=== PATIENT | male | born 2000 | race African-American/Black ===

== ENCOUNTER 2021-03-17 13:53 | Emergency (ER) | payer OTHER, SELFPAY ==
--- NOTE | ~2021-03-17 | XR_ITS ---
EXAMINATION: XR CHEST CLINICAL INFORMATION: Shortness of breath COMPARISON: None TECHNIQUE: Frontal view of the chest was obtained. FINDINGS: No significant abnormality is noted involving the heart, lungs, mediastinum, bony thorax or soft tissues. XR/XR chest 1V IMPRESSION: Unremarkable examination.
[2021-03-17 13:57] VITALS: BP 149/80; PULSE 96; RESP 16; TEMP 36.1; O2SAT 91; BMI 36.0
[2021-03-17 14:14] VITALS: O2SAT 98
--- NOTE | 2021-03-17 14:26 | ED.SOB ---
HPI - SOB/Dyspnea General Chief Complaint: Dyspnea Stated Complaint: diff breathing Time Seen by Provider: 03/17/21 14:15 History of Present Illness HPI Narrative: Patient is 20 years old no history of asthma in the past. Already received coronavirus vaccine. Complaining of shortness of breath. Patient has a history using marijuana. No other recreational drug use. Complaining of mild coughing upper respiratory symptoms that is been ongoing for the last 24 hours. No vomiting no diaphoresis no weight loss. Patient from home. No hospitalization in the past. No cardiac issues in the past. Related Data Previous Rx's Medication Instructions Recorded azithromycin 250 mg tablet See Rx Instructions .ROUTE 03/17/21 .COMPLEX #6 tab prednisone 20 mg tablet 40 mg PO DAILY #10 tab 03/17/21 Allergies Allergy/AdvReac Type Severity Reaction Status Date / Time No Known Allergies Allergy Unverified 01/25/20 18:25 Review of Systems Review of Systems: Positive coughing positive generalized malaise positive wheezing Yes all other systems are reviewed and are negative [facility] Past Medical History Attestation statement: The following information was validated with the patient. Social History Social History Alcohol intake: never Smoked in Last 30 Days: No Use of substances other than those prescribed or required for medical reasons: No Advance Directives: No Advance Directives Information Provided: No Physical Exam Vital Signs: Vital Signs: Last Vital Signs Temp 97.0 F 03/17/21 13:57 Pulse 96 03/17/21 13:57 Resp 16 03/17/21 13:57 BP 149/80 H 03/17/21 13:57 Pulse Ox 98 03/17/21 14:14 Body Mass Index 36.0 Appearance: Alert. Oriented X3. No acute distress. Eyes: Pupils equal, round and reactive to light. ENT: Pharynx normal. Neck: Normal inspection. Neck supple. No lymph nodes noted. No crepitus CVS: Normal heart rate and rhythm. Pulses normal. Normal S1 and S2 Respiratory: No respiratory distress. Positive expiratory wheezing noted bilaterally. Abdomen: Soft and nontender. No rigidity. No distention. good BS x4 Skin: Skin warm and dry. Normal skin color. Normal skin turgor. Extremities: No lower extremity edema. Neurovascular intact to all extremities. No Lacerations. No Rash Neuro: Oriented X 3. No motor deficit. No sensory deficit. Moving all extermities. No slurred speech MDM - SOB/Dyspnea MDM Narrative Medical decision making narrative: Patient's chest x-ray showed no evidence of pneumonia pneumothorax. Given steroid and neb treatment with moderate relief. O2 sats 98% on room air. Will give additional steroid. Will go ahead and given albuterol inhaler to take home. Patient is in stable condition. Will discharge home. Medical Records Attestation: I reviewed the patient's medical records. Lab Data Attestation: I reviewed the patient's lab results. Labs: Lab Results 03/17/21 Range/Units 14:28 COVID-19 ([facility]) Negative (Negative) COVID-19 Clin Com See Note Discharge Plan Discharge Clinical Impression: Asthma with exacerbation, Acute upper respiratory infection Patient Disposition: Home, Self-Care Instructions: Asthma (ED), Upper Respiratory Infection (ED) Prescriptions: New azithromycin 250 mg tablet See Rx Instructions .ROUTE .COMPLEX Qty: 6 RF: 0 prednisone 20 mg tablet 40 mg PO DAILY Qty: 10 RF: 0 Referrals: Jimmy Vaughn MD [Primary Care Provider] - 2 days
[2021-03-17] MEDS: predniSONE 20 MG TABLET 60 MG PO (14:27)
[2021-03-17] MEDS: Albuterol/Iprat 2.5/0.5MG 3 ML AMPUL.NEB INHALE (14:44)
[2021-03-17 14:50] LABS: COVID-19 Test Negative (Negative); IDNOW Serial# 9DD0AD1C
[2021-03-17 15:44] VITALS: PULSE 98; O2SAT 95
[2021-03-17] MEDS: Albuterol Sulfate 90 MCG 8 GM INHALER 2 PUFF INHALE (15:48)
== END 2021-03-17 16:25 | disposition home or self-care (01) ==
PROVIDERS: Emergency Provider Emergency Medicine Emergency Medical Services; PCP Pediatrics
DX: J06.9 Acute upper respiratory infection, unspecified (principal); J45.901 Unspecified asthma with (acute) exacerbation; Z20.822 Contact with and (suspected) exposure to COVID-19; Z79.899 Other long term (current) drug therapy
CPT/HCPCS: 36415; 71045; 87635; 94640; 99284

== ENCOUNTER 2022-06-26 20:21 | Inpatient (IN) | payer OTHER, SELFPAY ==
--- NOTE | 2022-06-26 20:39 | ED_ITS ---
HPI - Psych General Chief Complaint: Psychiatric Symptoms <EVENS Santos - Last Filed: 06/26/22 20:45> Stated Complaint: Crisis <EVENS Santos - Last Filed: 06/26/22 20:45> Time Seen by Provider: 06/26/22 21:04 <EVENS Santos - Last Filed: 06/26/22 20:45> Source: patient and family <Alberta Marks MD - Last Filed: 06/27/22 02:24> Mode of arrival: ambulatory <Alberta Marks MD - Last Filed: 06/27/22 02:24> Limitations: other (Paranoid) <Alberta Marks MD - Last Filed: 06/27/22 02:24> History of Present Illness HPI Narrative: Patient comes to the emergency room accompanied by his father. The family reports that the patient has been paranoid, talking to himself. Seems that earlier today, patient disclosed to his therapist that patient is hearing voices telling him to kill his mother. Patient has not been diagnosed with schizophrenia. However, there is strong family history on both sides of schizophrenia. Patient denies suicidal homicidal ideation <Alberta Marks MD - Last Filed: 06/27/22 02:24> Related Data Home Medications: Home Medications Medication Instructions Recorded Confirmed No Known Home Meds 06/26/22 06/26/22 <EVENS Santos - Last Filed: 06/26/22 20:45> Allergies/Adverse Reactions: Allergies Allergy/AdvReac Type Severity Reaction Status Date / Time No Known Allergies Allergy Verified 06/26/22 20:43 <EVENS Santos - Last Filed: 06/26/22 20:45> Review of Systems Review of Systems: Yes Unobtainable due to mental condition <Alberta Marks MD - Last Filed: 06/27/22 02:24> [facility] Social History Social History: Social History Alcohol intake: never Advance Directives: No Advance Directives Information Provided: No Healthcare Proxy: No Guardian: No <EVENS Santos - Last Filed: 06/26/22 20:45> Physical Exam Vital Signs: Vital Signs: Last Vital Signs Temp 98.1 F 06/27/22 06:55 Pulse 78 06/27/22 06:55 Resp 16 06/27/22 06:55 BP 118/63 06/27/22 06:55 Pulse Ox 96 06/27/22 06:55 O2 Del Method 06/27/22 06:55 BMI result Body Mass Index 34.1 <EVENS Santos - Last Filed: 06/26/22 20:45> Vital Signs: Last Vital Signs Temp 98.1 F 06/27/22 06:55 Pulse 78 06/27/22 06:55 Resp 16 06/27/22 06:55 BP 118/63 06/27/22 06:55 Pulse Ox 96 06/27/22 06:55 O2 Del Method 06/27/22 06:55 BMI result Body Mass Index 34.1 <Alberta Marks MD - Last Filed: 06/27/22 02:24> Vital Signs: Last Vital Signs Temp 98.1 F 06/27/22 06:55 Pulse 78 06/27/22 06:55 Resp 16 06/27/22 06:55 BP 118/63 06/27/22 06:55 Pulse Ox 96 06/27/22 06:55 O2 Del Method 06/27/22 06:55 BMI result Body Mass Index 34.1 <Cuate Ortiz MD - Last Filed: 06/27/22 08:08> Const: Other: Appearance: Alert. Agitated, pacing around the rooms, trying to enter other patient's rooms, redirectable Eyes: Pupils equal, round and reactive to light. ENT: Pharynx normal. Neck: Normal inspection. Neck supple. No lymph nodes noted. No crepitus CVS: Normal heart rate and rhythm. Pulses normal. Normal S1 and S2 Respiratory: No respiratory distress. Breath sounds normal. No Wheezing. No rales Abdomen: Soft and nontender. No rigidity. No distention. Skin: Skin warm and dry. Normal skin color. Normal skin turgor. Extremities: No lower extremity edema. No Lacerations. No Rash Neuro: Oriented X 3. No motor deficit. No sensory deficit. Moving all extremities. No slurred speech. CN 2 through 12 grossly intact Psych: Restless, pacing around the rooms, delayed response to answering questions <Alberta Marks MD - Last Filed: 06/27/22 02:24> Course Course Course Narrative: RME- 20pm 21yoM presenting to the ED with Parents with complaints of being paranoid and and having hallucination started yesterday. Father brought him here for further evaluation treatment due to patient was acting erratic and the voices were telling him to harm other people. At this time patient denies this. Denies any SI or HI. Parents report this happened 6 months ago before see a counselor although this was after COVID and he was never seen by a psychiatrist or therapist. Patient denies any drug or alcohol usage. Family hx of schizoaffective disorder. Patient was never diagnosed with any mental health disorders. He is not on any medications. He does not have any prior medical history. Plan: Labs, UA, drugs of abuse screen, EKG, COVID/RSV/flu swab ordered at this time. Patient will be sent to the [facility] offer further evaluation and treatment. <EVENS Santos - Last Filed: 06/26/22 20:45> Reevaluation(s) Reevaluation #1: Jun 27, 8:07 AM Patient is here with auditory hallucination, remained hemodynamically stable no event overnight, pending crisis eval <Cuate Ortiz MD - Last Filed: 06/27/22 08:08> Time: 08:07 <Cuate Ortiz MD - Last Filed: 06/27/22 08:08> Medications Administered Discontinued Medications Generic Name Dose Route Start Last Admin Trade Name Freq PRN Reason Stop Dose Admin Diphenhydramine HCl 50 mg 06/26/22 23:47 06/26/22 23:53 Diphenhydramine Hcl 25 Mg Capsule PO 06/26/22 23:48 50 mg ONCE ONE Administration Haloperidol 5 mg 06/26/22 23:47 06/26/22 23:53 Haloperidol 5 Mg Tablet PO 06/26/22 23:48 5 mg ONCE ONE Administration Lorazepam 2 mg 06/26/22 23:47 06/26/22 23:53 Lorazepam 1 Mg Tablet PO 06/26/22 23:48 2 mg ONCE ONE Administration <EVENS Santos - Last Filed: 06/26/22 20:45> Medications Administered Discontinued Medications Generic Name Dose Route Start Last Admin Trade Name Freq PRN Reason Stop Dose Admin Diphenhydramine HCl 50 mg 06/26/22 23:47 06/26/22 23:53 Diphenhydramine Hcl 25 Mg Capsule PO 06/26/22 23:48 50 mg ONCE ONE Administration Haloperidol 5 mg 06/26/22 23:47 06/26/22 23:53 Haloperidol 5 Mg Tablet PO 06/26/22 23:48 5 mg ONCE ONE Administration Lorazepam 2 mg 06/26/22 23:47 06/26/22 23:53 Lorazepam 1 Mg Tablet PO 06/26/22 23:48 2 mg ONCE ONE Administration <Alberta Marks MD - Last Filed: 06/27/22 02:24> Medications Administered Discontinued Medications Generic Name Dose Route Start Last Admin Trade Name Nikko PRN Reason Stop Dose Admin Diphenhydramine HCl 50 mg 06/26/22 23:47 06/26/22 23:53 Diphenhydramine Hcl 25 Mg Capsule PO 06/26/22 23:48 50 mg ONCE ONE Administration Haloperidol 5 mg 06/26/22 23:47 06/26/22 23:53 Haloperidol 5 Mg Tablet PO 06/26/22 23:48 5 mg ONCE ONE Administration Lorazepam 2 mg 06/26/22 23:47 06/26/22 23:53 Lorazepam 1 Mg Tablet PO 06/26/22 23:48 2 mg ONCE ONE Administration <Cuate Ortiz MD - Last Filed: 06/27/22 08:08> Medical Decision Making Medical Decision Making MDM Narrative: -patient was given p.o. Haldol, lorazepam and diphenhydramine. -patient had good response to the above mentioned medications. Patient has not been prescribed any medications previously for mental conditions. -I was informed by the patient's nurse that patient had been extremely restless and labs were not obtained. However, patient is now calm, sleeping, they will attempt drawing blood and obtaining a urine sample shortly. -patient is on a Section 12, patient is to be re-evaluated in the morning -all the labs pending. -sign-out given to Dr. Parikh <Alberta Marks MD - Last Filed: 06/27/22 02:24> Differential Diagnosis Differential Diagnoses: The differential diagnosis associated with the presentation includes (Substance abuse, anxiety, depression, schizophrenia, paranoia) <Alberta Marks MD - Last Filed: 06/27/22 02:24> Admission/Observation Consideration of admission/observation: Escalation of care including admission/observation considered <Alberta Marks MD - Last Filed: 06/27/22 02:24> Lab Data Labs: Lab Results 06/26/22 06/27/22 Range/Units 21:20 06:33 Urine Color Yellow Urine Appearance Clear Urine pH 5.5 (5.0-9.0) Ur Specific [place] 1.025 (1.005-1.025) Urine Protein Trace (Neg-Trace) mg/dL Urine Glucose (UA) Negative (Negative) mg/dL Urine Ketones Negative (Negative) mg/dL Urine Blood Negative (Negative) Urine Nitrite Negative (Negative) Ur Leukocyte Esterase Negative (Negative) Influenza Type A (PCR) NEGATIVE (Negative) Influenza Type B (PCR) NEGATIVE (Negative) RSV RNA Qual (PCR) NEGATIVE (Negative) SARS-CoV-2 RNA (RT-PCR) NEGATIVE (Negative) <EVENS Santos - Last Filed: 06/26/22 20:45> Lab Results 06/26/22 06/27/22 Range/Units 21:20 06:33 Urine Color Yellow Urine Appearance Clear Urine pH 5.5 (5.0-9.0) Ur Specific [place] 1.025 (1.005-1.025) Urine Protein Trace (Neg-Trace) mg/dL Urine Glucose (UA) Negative (Negative) mg/dL Urine Ketones Negative (Negative) mg/dL Urine Blood Negative (Negative) Urine Nitrite Negative (Negative) Ur Leukocyte Esterase Negative (Negative) Influenza Type A (PCR) NEGATIVE (Negative) Influenza Type B (PCR) NEGATIVE (Negative) RSV RNA Qual (PCR) NEGATIVE (Negative) SARS-CoV-2 RNA (RT-PCR) NEGATIVE (Negative) <Alberta Marks MD - Last Filed: 06/27/22 02:24> Lab Results 06/26/22 06/27/22 Range/Units 21:20 06:33 Urine Color Yellow Urine Appearance Clear Urine pH 5.5 (5.0-9.0) Ur Specific [place] 1.025 (1.005-1.025) Urine Protein Trace (Neg-Trace) mg/dL Urine Glucose (UA) Negative (Negative) mg/dL Urine Ketones Negative (Negative) mg/dL Urine Blood Negative (Negative) Urine Nitrite Negative (Negative) Ur Leukocyte Esterase Negative (Negative) Influenza Type A (PCR) NEGATIVE (Negative) Influenza Type B (PCR) NEGATIVE (Negative) RSV RNA Qual (PCR) NEGATIVE (Negative) SARS-CoV-2 RNA (RT-PCR) NEGATIVE (Negative) <Cuate Ortiz MD - Last Filed: 06/27/22 08:08> Discharge Plan Discharge Clinical Impression: Paranoid, Auditory hallucinations <EVENS Santos - Last Filed: 06/26/22 20:45> Patient Disposition: Still a Patient <EVENS Santos - Last Filed: 06/26/22 20:45> Prescriptions: No Action No Known Home Meds <EVENS Santos - Last Filed: 06/26/22 20:45> Interventions: [place]-Suicide Risk Severity Scale Last Done: 06/27/22 05:12 <EVENS Santos - Last Filed: 06/26/22 20:45>
--- NOTE | 2022-06-26 20:40 | ECG_ITS ---
Test Reason : QT CHECK Blood Pressure : / mmHG Vent. Rate : 088 BPM Atrial Rate : 088 BPM P-R Int : 134 ms QRS Dur : 082 ms QT Int : 370 ms P-R-T Axes : 055 017 000 degrees QTc Int : 447 ms Normal sinus rhythm with sinus arrhythmia Normal ECG No previous ECGs available Referred By: Marisol Stanton Electronically Signed By:Harsha Ross
[2022-06-26 20:45] VITALS: BP 153/86; PULSE 10; RESP 16; TEMP 36.7; O2SAT 97; BMI 34.1
[2022-06-26 22:04] LABS: Influenza A PCR NEGATIVE (Negative); Influenza B PCR NEGATIVE (Negative); Resp Syncy Virus RNA Qual PCR NEGATIVE (Negative); SARS COV2 PCR INHOUSE NEGATIVE (Negative)
[2022-06-26] MEDS: diphenhydrAMINE HCL 25 MG CAPSULE 50 MG PO (23:53)
[2022-06-26] MEDS: HaloperidoL 5 MG TABLET PO (23:53)
[2022-06-26] MEDS: LORazepam 1 MG TABLET 2 MG PO (23:53)
[2022-06-27] VITALS (7 sets, daily range): BP systolic 118–157; BP diastolic 63–93; PULSE 78–125; RESP 16–20; TEMP 36.1–37.1; O2SAT 95–98
--- NOTE | 2022-06-27 05:57 | PC.NURSE ---
Patient at the time of arrival was emotionally dysregulated, self dialoguing, tearful, intrusive at time, jumping over the bed, provider notified/ordered Ativan 2 mg PO, Haldol 5 mg PO, and Benadryl 50 mg po administered as ordered at 2353 with + effect, patient engaged well with care team, disposition pending due to unavailability of labs result, med rec completed/patient is not on any home medication, behavior non concerning but may escalates, VSS, will continue to monitor.
--- NOTE | 2022-06-27 06:02 | PC.NURSE ---
Labs and EKG pending, patient is refusing.
[2022-06-27 06:41] LABS: Appearance Urine Clear; Color Urine Yellow; Glucose Urine UA Negative (Negative); Leukocyte Esterase Urine Negative (Negative); Nitrite Urine Negative (Negative); PH 5.5 (5.0-9.0); Specific Gravity - Urine 1.025 (1.005-1.025); Urine Blood Negative (Negative); Urine Ketones Negative (Negative); Urine Protein Trace mg/dL (Neg-Trace)
[2022-06-27 06:50] LABS: Amphetamine Screen Urine Not Detected (Not Detect); Barbiturates, Urine Not Detected (Not Detect); Benzodiazepines Screen Urine Not Detected (Not Detect); Cannabinoid Screen Urine Not Detected (Not Detect); Cocaine Screen Urine Not Detected (Not Detect); Fentanyl, urine Not Detected (Not Detect); Opiate Screen Urine Not Detected (Not Detect); Phencyclidine Screen Urine Not Detected (Not Detect)
--- NOTE | 2022-06-27 09:48 | MHC.CARE ---
patient is an inpatient bed search at this time.
--- NOTE | 2022-06-27 18:57 | PC.NURSE ---
Jeffrey was admitted to at 1735 from [facility] Pod on CV for treatment of psychosis. Precipitant of admission includes recent command auditory hallucinations to harm self and others, recent paranoia and difficulty sleeping. Jeffrey is alert, fully oriented, pleasant and largely cooperative with admission process. He does appear suspicious and guarded. He denies some of the information in the crisis assessment. For instance he confirmed CAH to harm self and denied CAH to harm others, In addition he denied ever using cocaine. Thought process appears logical. Affect is anxious. At times he appears internally preoccupied with some thought blocking. Jeffrey adamantly denies ideation, plan or intent to harm self or others. I hear the voices but I would never do what they tell me to do. Appetite is good with no recent wt loss or gain. Sleep is poor. I lay down to sleep and the voices keep me awake or if I do sleep they wake me up. Focus is fair. Substance Issues include marijuana and cocaine. He reports drinking 1-2 drinks every two weeks or so. No medical Issues?noted or reportedHe denies physical complaint. Jeffrey was placed on 15 minute Safety Checks.
--- NOTE | 2022-06-27 20:59 | PM.EVENT ---
Event Note Date of Service: 06/27/22 Event Note: patient eloped from [facility] and was brought back by security.He was agitated but settled after being put in a restraint chair. Haldol 5 mg, Benadryl 50 mg and Ativan 2 mg PO were ordered as PRNs. He was placed on 1:1 for tonight Time Spent With Patient Time: Total time managing care of this patient today __15__ minutes.
--- NOTE | 2022-06-27 21:05 | P.EN_ITS ---
Event Note Date of Service: 06/27/22 Event Note: Got a call from nursing railroad track repair supervisor that patient tried to elope from M3. He grabbed batch from 1 of the DIRECTOR CLINICAL [employer] and tried to exit the rear door. He was brought back by security. He was chemically restrained prior to my arrival. At the time of my evaluation, patient is calm and sitting in restraint chair. Denies any symptoms. He was placed on 1:1 for tonight Time Spent With Patient Time: Total time managing care of this patient today ____ minutes.
--- NOTE | 2022-06-28 04:26 | PC.NURSE ---
Addendum entered by Farhana Castle RN 06/28/22 05:47: No staff were injured on unit. Original Note: At approximately 20:17, pt was in milieu and had approached staff members. While speaking with them, pt grabbed one staff member's company baddaisy and ran to door at [address] stair[address] on unit. Using badge, he exited unit and ran into stairwell while being pursued by a staff member. Security was called at 20:19. Description of pt was given. Security escorted pt back to unit by 20:30. Pt was placed in restraint chair at 2034. Provider student liaison officer, Dr. Baer was notified of events, ordered PO meds and placed pt on 1:1. Vital signs were taken q15 mins and were stable. Pt was offered oral medications and he declined all of them. Pt was asked if he wanted his family notified of the event and subsequent restraint use and he stated that he did not want them notified. Pt had remained calm, cooperative and maintained behavioral control, therefore he was released from restraint chair at 21:20 with security present. Hospitalist, Dr. Whittington had been notified of the need for post-restraint consult and was on the unit to see pt at 21:03. No complaints of pain or injury. Pt's mother later called to check on her son. Pt was asked for permission to explain to mother what happened. Pt now agreed at this time. Info provided to Mom. Pt was up in milieu watching tv, playing card games and reading in his room. Pt has been cooperative since release from restraint chair. RN Data Processing Manager was notified of events. Pt continues on 1:1 to maintain safety.
--- NOTE | 2022-06-28 10:29 | P.HPPS_ITS ---
[facility] Date of Service: 06/28/22 Chief Complaint: depression, hi Sources of Information: patient interviewed, chart reviewed and crisis/core team assessment reviewed Additional Sources of Information: Father present during admission- Mr. Allen [facility] Subjective Notes: Dimas Warning (given and shows understanding) and Conditional Voluntary Narrative: Mr. Jessica is a 21 year-old male no prior psych admission or treatment but it appears symptoms have started over a year ago. Per father, pt had brief episode of paranoia and psychosis about one year ago but pt was not brought to the hospital nor the family seek outpatient psychiatric treatment. Per father, pt has been increasingly more socially withdrawn, not showing much motivation to seek a job or engage in activities outside of his house. In the past 2 week, pt has been reporting hearing voices telling her that his father has killed people or sold drugs. Pt has not been sleeping for 2 weeks. Pt has been more anxious and suspicious. He has been seen talking to someone who is not there. Pt has told family that voices are telling him that he should harm himself or his family. Pt has reported to father that he worries about their safety as voices telling her that someone may harm his family. Pt finally called the police and told them that there was a stranger in his house and at that time he agreed to come to the hospital for further evaluation. In the ED, utox is negative. CBC shows normocytic anema. CMP with very slightly elevated AST/ALT. TSH wnl. In the ED, pt was agitated requiring haldol and ativan IM with good effect. When pt was brought to the unit, he grabbed an ID from staff and eloped. He was brought by police back to the unit. No further agitation after that. Today, pt reports he was worried about his safety and his family safety and therefore elope. He reports hearing less voices, denies voices telling him to harm himself or others. He denies SI/HI. He reports fair sleep. Past Psychiatric History: Inpt: none before OP: none Past med trials: none Suicide attempt: none Per father no hx of aggression towards self or others prior to this admission. Medical Evaluation Reviewed: Yes PMFSH Family History: paternal uncle with schizophrenia. Social History: Pt lives with father. He completed HS. 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 Substance History: None Trauma History: None Diagnostics Vital Signs (24Hr): Vital Signs - 24 hr 06/27/22 15:03 06/27/22 18:42 Temperature 98.2 F 98.8 F Pulse Rate 89 99 Respiratory Rate 16 18 Blood Pressure 125/77 157/93 H Pulse Oximetry 98 97 Oxygen Delivery Method Room Air Room Air BMI result Body Mass Index 34.1 Labs 06/29/22 08:24 06/29/22 08:24 Labs: Laboratory Results - last 48 hr 06/26/22 06/27/22 06/27/22 21:20 06:33 06:33 Urine Color Yellow Urine Appearance Clear Urine pH 5.5 Ur Specific [place] 1.025 Urine Protein Trace Urine Glucose (UA) Negative Urine Ketones Negative Urine Blood Negative Urine Nitrite Negative Ur Leukocyte Esterase Negative Urine Opiates Screen Not Detected Urine Fentanyl Screen Not Detected Ur Barbiturates Screen Not Detected Ur Phencyclidine Scrn Not Detected Ur Amphetamines Screen Not Detected U Benzodiazepines Scrn Not Detected Urine Cocaine Screen Not Detected U Marijuana (THC) Screen Not Detected Influenza Type A (PCR) NEGATIVE Influenza Type B (PCR) NEGATIVE RSV RNA Qual (PCR) NEGATIVE SARS-CoV-2 RNA (RT-PCR) NEGATIVE Meds/Allergies Meds Home Medications Medication Instructions Recorded Confirmed Type No Known Home Meds 06/26/22 06/26/22 History Allergies Allergies Allergy/AdvReac Type Severity Reaction Status Date / Time No Known Allergies Allergy Verified 06/26/22 20:43 Mental Status Exam Mental Status Exam Narrative: Appearance: casually groomed, fair hygiene, in NAD Behavior: superfically cooperative but calm Psychomotor: no agitation or retardation noted Speech: clear, some delayed in response, soft tone, spontaneous TP: linear TC: paranoia that someone may harm him or ihs family Mood: anxious Affect: congruent SI: denies HI: denies VH/AH: reports hearing voices telling him that family is in danger Delusions: paranoid delusions Insight/judgment: improving x 2. Memory/cog: alert, oriented to place, month, year, situation. Assessment & Plan Assessment & Plan (1) Schizophrenia: Status: Acute Code(s): F20.9 - Schizophrenia, unspecified Plan Mr. Jessica is a 21 year-old male with prior episode of psychosis and paranoia a year ago, gradually decline in ability to function for past 1-2 years, less interest in social relationships, withdrawn. He has strong family hx of schizophrenia with paternal uncle and a maternal relative. Pt brought to [facility] after he called police reporting someone had broke into his house and presented as paranoid. We discussed risks, benefits and alternative treatment options. Pt slightly calmer today and agrees to try risperidone. PLAN 1. Admit to M3, CV, 15 minutes checks for safety 2. start risperidone 1mg po BID 3. obtain collateral information 4. Aftercare plan. Patient educated on: diagnosis Reason for continued inpatient stay Substantial Risk for: inability to function Statement Statement: I have reviewed the history and physical and performed a pertinent examination on my patient. No changes have occurred unless specified. If the History and Physical was not performed prior to admission, the Hospitalist's service will be consulted for completing the admission physical. Time Spent With Patient Time: Total time managing care of this patient today ____ minutes.
[2022-06-28] MEDS: risperiDONE 1 MG TABLET PO (12:45)
[2022-06-29] MEDS: risperiDONE 1 MG TABLET PO ×3 (00:29→22:02)
[2022-06-29 08:28] LABS: MANUAL DIFF FLAG NO
[2022-06-29 08:30] LABS: Basophils Absolute Auto 0.1 X10*3/uL (0.0-0.2); Basophils Percent Auto 1.3 % (0-2); Eosinophils Absolute Auto 0.1 X10*3/uL (0.0-0.4); Eosinophils Percent Auto 2.6 % (0-4); Hematocrit 41.6 % (42.0-52.0); Hemoglobin 13.9 g/dl (14.0-18.0); Imm Gran Abs Auto 0.01 X10*3/uL (0.00-0.03); Imm Gran Pct Auto 0.2 % (0.0-0.4); Lymphocytes Percent Auto 35.8 % (20-40); Mean Corpuscular HGB Conc 33.4 g/dl (31.0-36.0); Mean Corpuscular Volume 86.7 fL (80.0-98.0); Mean Platelet Volume 9.5 fL (9.4-12.4); Monocytes Absolute Auto 0.4 X10*3/uL (0.1-1.2); Monocytes Percent Auto 7.3 % (2-11); Neutrophils Absolute Auto 2.9 x10*3/uL (2.0-8.3); Neutrophils Percent Auto 52.8 % (45-73); Platelet Count 276 X10*3/uL (160-400); Red Cell Distribution Width 12.3 % (11.0-16.0); White Blood Count 5.5 X10*3/uL (4.8-10.8)
[2022-06-29 09:10] LABS: Alanine Aminotransferase 49 U/L (0-40); Albumin Level 4.1 g/dL (3.5-5.0); Alkaline Phosphatase 56 U/L (39-117); Anion Gap 12 (12-20); Aspartate Amino Transferase 40 U/L (5-37); Bilirubin Total 0.8 mg/dL (0.0-1.0); Blood Urea Nitrogen 11 mg/dL (9-16); Calcium 9.2 mg/dL (8.4-10.2); Carbon Dioxide 25 mmol/L (22-29); Chloride 105 mmol/L (96-108); Cholesterol 120 mg/dL; Creatinine Clr Calc Pharmacy 139.5; Estimated Glomerular Filt Rate > 60; Glucose Fasting 103 mg/dL (60-99); HDL Cholesterol 29 mg/dL; LDL Cholesterol Calculated 82 mg/dl; Potassium 4.3 mmol/L (3.3-5.1); Sodium 138 mmol/L (135-145); Triglycerides 48 mg/dL
[2022-06-29 09:26] LABS: Thyroid Stimulating Hormone 3.51 uIU/mL (0.32-4.0)
[2022-06-29 09:32] VITALS: BP 135/78; PULSE 87; RESP 16; TEMP 36.8; O2SAT 97
[2022-06-29 21:50] VITALS: BP 176/85; PULSE 105; TEMP 36.2; O2SAT 98
[2022-06-30 09:30] VITALS: BP 167/81; PULSE 99; RESP 20; TEMP 36.8; O2SAT 100
[2022-06-30] MEDS: risperiDONE 1 MG TABLET PO (09:53)
--- NOTE | 2022-06-30 13:28 | HO.PSYCHPN ---
Subjective Subjective Date of Service: 06/30/22 Reason For Visit: depression, hi Subjective Notes: Conditional Voluntary Interim History: Pt reports fair sleep. He reports less voices. He reports less worry about his safety and other's safety. He reports medications help him think more clearly. He denies SI/HI. He denies any physical concerns. He reports mild sedation in morning after taking risperidone but states that he feels less anxious after, therefore, declines to switch all dosing to bedtime. Review of Systems Review of Systems Yes Unobtainable due to mental condition Mental Status Exam Mental Status Exam Narrative: Appearance: casually groomed, fair hygiene, in NAD Behavior: superfically cooperative but calm Psychomotor: no agitation or retardation noted Speech: clear, some delayed in response, soft tone, spontaneous TP: linear TC: paranoia that someone may harm him or ihs family Mood: anxious Affect: congruent SI: denies HI: denies VH/AH: reports hearing voices telling him that family is in danger Delusions: paranoid delusions Insight/judgment: improving x 2. Memory/cog: alert, oriented to place, month, year, situation. Diagnostics Vital Signs (24Hr): Vital Signs - 24 hr 06/29/22 21:50 06/30/22 09:30 Temperature 97.2 F 98.3 F Pulse Rate 105 H 99 Respiratory Rate 20 Blood Pressure 176/85 H 167/81 H Pulse Oximetry 98 100 Oxygen Delivery Method Room Air Room Air BMI result Body Mass Index 34.1 Labs 06/29/22 08:24 06/29/22 08:24 Labs: Laboratory Results - last 48 hr 06/29/22 06/29/22 08:24 08:24 WBC 5.5 RBC 4.80 Hgb 13.9 L Hct 41.6 L MCV 86.7 MCH 29.0 MCHC 33.4 RDW 12.3 Plt Count 276 MPV 9.5 Immature Gran % (Auto) 0.2 Neut % (Auto) 52.8 Lymph % (Auto) 35.8 [place] % (Auto) 7.3 Eos % (Auto) 2.6 Baso % (Auto) 1.3 Lymph # (Auto) 2.0 [place] # (Auto) 0.4 Eos # (Auto) 0.1 Baso # (Auto) 0.1 Abs Immat Gran (auto) 0.01 Absolute Neuts (auto) 2.9 Absolute Nucleated RBC 0.000 Nucleated RBC % (auto) 0.0 Sodium 138 Potassium 4.3 Chloride 105 Carbon Dioxide 25 Anion Gap 12 BUN 11 Creatinine 0.93 Estim Creat Clear Calc 139.5 Estimated GFR > 60 Fasting Glucose 103 H Calcium 9.2 Total Bilirubin 0.8 AST 40 H ALT 49 H Alkaline Phosphatase 56 Total Protein 7.0 Albumin 4.1 Triglycerides 48 Cholesterol 120 LDL Cholesterol, Calc 82 HDL Cholesterol 29 TSH 3.51 Medications Medications Current Medications Acetaminophen (Acetaminophen 325 Mg Tablet) 650 mg PO Q6H PRN PRN Reason: Headache/Pain Mild Scale (1-3) Al Hydroxide/Mg Hydroxide (Magnesium Hydrox/Alum Hydrox 30 Ml Oral.Susp) 30 ml PO Q6H PRN PRN Reason: Heartburn/Nausea Diphenhydramine HCl (Diphenhydramine Hcl 25 Mg Capsule) 50 mg PO ONCE PRN PRN Reason: anxiety/restlessness Haloperidol (Haloperidol 5 Mg Tablet) 5 mg PO ONCE PRN PRN Reason: Anxiety Hydroxyzine HCl (Hydroxyzine Hcl 25 Mg Tablet) 25 mg PO Q6H PRN PRN Reason: Anxiety Lorazepam (Lorazepam 1 Mg Tablet) 2 mg PO ONCE PRN PRN Reason: anxiety/restlessness Lorazepam (Lorazepam 1 Mg Tablet) 2 mg PO Q4H PRN PRN Reason: anxiety/agitation/sleep Magnesium Hydroxide (Milk Of Magnesia 30 Ml Oral.Susp) 30 ml PO DAILY PRN PRN Reason: Constipation Olanzapine (Olanzapine Odt 10 Mg Tab.Rapdis) 10 mg TRANSLINGU Q6H PRN PRN Reason: agitation Risperidone (Risperidone 2 Mg Tablet) 2 mg PO BID SHALOM Trazodone HCl (Trazodone Hcl 50 Mg Tablet) 50 mg PO BEDTIME MRX1 PRN PRN Reason: Insomnia Allergies Allergies Allergy/AdvReac Type Severity Reaction Status Date / Time No Known Allergies Allergy Verified 06/26/22 20:43 Assessment & Plan Assessment & Plan (1) Schizophrenia: Status: Acute Code(s): F20.9 - Schizophrenia, unspecified Plan Mr. Jessica is a 21 year-old male with prior episode of psychosis and paranoia a year ago, gradually decline in ability to function for past 1-2 years, less interest in social relationships, withdrawn. He has strong family hx of schizophrenia with paternal uncle and a maternal relative. Pt brought to [facility] ED after he called police reporting someone had broke into his house and presented as paranoid. We discussed risks, benefits and alternative treatment options. Pt slightly calmer today and agrees to try risperidone. PLAN 1. Admit to M3, CV, 15 minutes checks for safety 2. start risperidone 1mg po BID 3. obtain collateral information 4. Aftercare plan. 06/30 increase risperidone 2mg po BID. Reason for contiued inpatient stay Substantial Risk for: inability to function Time Spent With Patient Time: Total time managing care of this patient today ____ minutes.
[2022-06-30 18:00] VITALS: BP 157/78; PULSE 112; RESP 20; TEMP 36.6; O2SAT 97
[2022-06-30] MEDS: risperiDONE 2 MG TABLET PO (20:23)
[2022-07-01 08:00] VITALS: BP 157/81; PULSE 93; RESP 18; TEMP 36.7; O2SAT 99
[2022-07-01] MEDS: risperiDONE 1 MG TABLET PO ×2 (10:05→20:49)
--- NOTE | 2022-07-01 11:32 | HO.PSYCHPN ---
Subjective Subjective Date of Service: 07/01/22 Reason For Visit: depression, hi Subjective Notes: Conditional Voluntary Interim History: Per nursing, pt had difficulty falling and staying asleep, which pt denies. Pt asks to be back on risperidone 1mg po BID. He presents as calm, less AH, less paranoid and no signs of aggression towards self or others. Father and mother report they both think pt much improved and would like pt to be discharged soon. Review of Systems Review of Systems Yes Unobtainable due to mental condition Mental Status Exam Mental Status Exam Narrative: Appearance: casually groomed, fair hygiene, in NAD Behavior: superfically cooperative but calm Psychomotor: no agitation or retardation noted Speech: clear, some delayed in response, soft tone, spontaneous TP: linear TC: paranoia that someone may harm him or ihs family Mood: anxious Affect: congruent SI: denies HI: denies VH/AH: reports hearing voices telling him that family is in danger Delusions: paranoid delusions Insight/judgment: improving x 2. Memory/cog: alert, oriented to place, month, year, situation. Diagnostics Vital Signs (24Hr): Vital Signs - 24 hr 07/01/22 20:47 07/01/22 21:28 07/02/22 08:30 Temperature 97.9 F 97.1 F Pulse Rate 101 H 92 Respiratory Rate 18 Blood Pressure 145/80 H 148/85 H Pulse Oximetry 99 100 Oxygen Delivery Method Room Air Room Air BMI result Body Mass Index 37.3 Labs 06/29/22 08:24 06/29/22 08:24 Medications Medications Current Medications Acetaminophen (Acetaminophen 325 Mg Tablet) 650 mg PO Q6H PRN PRN Reason: Headache/Pain Mild Scale (1-3) Al Hydroxide/Mg Hydroxide (Magnesium Hydrox/Alum Hydrox 30 Ml Oral.Susp) 30 ml PO Q6H PRN PRN Reason: Heartburn/Nausea Diphenhydramine HCl (Diphenhydramine Hcl 25 Mg Capsule) 50 mg PO ONCE PRN PRN Reason: anxiety/restlessness Haloperidol (Haloperidol 5 Mg Tablet) 5 mg PO ONCE PRN PRN Reason: Anxiety Hydroxyzine HCl (Hydroxyzine Hcl 25 Mg Tablet) 25 mg PO Q6H PRN PRN Reason: Anxiety Lorazepam (Lorazepam 1 Mg Tablet) 2 mg PO ONCE PRN PRN Reason: anxiety/restlessness Lorazepam (Lorazepam 1 Mg Tablet) 2 mg PO Q4H PRN PRN Reason: anxiety/agitation/sleep Magnesium Hydroxide (Milk Of Magnesia 30 Ml Oral.Susp) 30 ml PO DAILY PRN PRN Reason: Constipation Olanzapine (Olanzapine Odt 10 Mg Tab.Rapdis) 10 mg TRANSLINGU Q6H PRN PRN Reason: agitation Risperidone (Risperidone 1 Mg Tablet) 1 mg PO BID SHALOM Last Admin: 07/01/22 20:49 Dose: 1 mg Trazodone HCl (Trazodone Hcl 50 Mg Tablet) 50 mg PO BEDTIME MRX1 PRN PRN Reason: Insomnia Allergies Allergies Allergy/AdvReac Type Severity Reaction Status Date / Time No Known Allergies Allergy Verified 06/26/22 20:43 Assessment & Plan Assessment & Plan (1) Schizophrenia: Status: Acute Code(s): F20.9 - Schizophrenia, unspecified Plan Mr. Jessica is a 21 year-old male with prior episode of psychosis and paranoia a year ago, gradually decline in ability to function for past 1-2 years, less interest in social relationships, withdrawn. He has strong family hx of schizophrenia with paternal uncle and a maternal relative. Pt brought to [facility] ED after he called police reporting someone had broke into his house and presented as paranoid. We discussed risks, benefits and alternative treatment options. Pt slightly calmer today and agrees to try risperidone. PLAN 1. Admit to M3, CV, 15 minutes checks for safety 2. start risperidone 1mg po BID 3. obtain collateral information 4. Aftercare plan. 06/30 increase risperidone 2mg po BID. 07/01 decrease risperidone to 1mg po BID per pt request. Reason for contiued inpatient stay Substantial Risk for: stable for discharge Time Spent With Patient Time: Total time managing care of this patient today ____ minutes.
[2022-07-01 20:47] VITALS: BP 145/80; PULSE 101; O2SAT 99
[2022-07-01 21:28] VITALS: TEMP 36.6
[2022-07-02 08:30] VITALS: BP 148/85; PULSE 92; RESP 18; TEMP 36.2; O2SAT 100
[2022-07-02 08:45] VITALS: BMI 37.3
--- NOTE | 2022-07-02 08:53 | P.DS_ITS ---
DS: Providers Provider Date of Service: 07/02/22 Date of admission: 06/27/22 17:08 Primary care physician: Jimmy Vaughn MD DS: Diagnosis Discharge Diagnosis (1) Schizophrenia: Status: Acute DS: Medications Discharge Medications Home Medications: Previous Rx's Medication Instructions Recorded risperidone 1 mg tablet 1 mg PO BID #60 tabs 07/02/22 Mental Status Exam Mental Status Exam Narrative: Appearance: casually groomed, fair hygiene, in NAD Behavior: cooperative Psychomotor: no agitation or retardation noted Speech: clear, less delayed in response, soft tone, spontaneous TP: linear TC: no overt psychosis looking forward to see family. Mood: anxious Affect: congruent SI: denies HI: denies VH/AH: reports hearing voices telling him that family is in danger Delusions:no overt paranoid delusions Insight/judgment: improving x 2. Memory/cog: alert, oriented to place, month, year, situation. Data Data Completed and Pending Completed studies during hospitalization [Text1]: 06/26/22 06/27/22 06/27/22 21:20 06:33 06:33 WBC RBC Hgb Hct MCV MCH MCHC RDW Plt Count MPV Immature Gran % (Auto) Neut % (Auto) Lymph % (Auto) [place] % (Auto) Eos % (Auto) Baso % (Auto) Lymph # (Auto) [place] # (Auto) Eos # (Auto) Baso # (Auto) Abs Immat Gran (auto) Absolute Neuts (auto) Absolute Nucleated RBC Nucleated RBC % (auto) Sodium Potassium Chloride Carbon Dioxide Anion Gap BUN Creatinine Estim Creat Clear Calc Estimated GFR Fasting Glucose Calcium Total Bilirubin AST ALT Alkaline Phosphatase Total Protein Albumin Triglycerides Cholesterol LDL Cholesterol, Calc HDL Cholesterol TSH Urine Color Yellow Urine Appearance Clear Urine pH 5.5 Ur Specific [place] 1.025 Urine Protein Trace Urine Glucose (UA) Negative Urine Ketones Negative Urine Blood Negative Urine Nitrite Negative Ur Leukocyte Esterase Negative Urine Opiates Screen Not Detected Urine Fentanyl Screen Not Detected Ur Barbiturates Screen Not Detected Ur Phencyclidine Scrn Not Detected Ur Amphetamines Screen Not Detected U Benzodiazepines Scrn Not Detected Urine Cocaine Screen Not Detected U Marijuana (THC) Screen Not Detected Influenza Type A (PCR) NEGATIVE Influenza Type B (PCR) NEGATIVE RSV RNA Qual (PCR) NEGATIVE SARS-CoV-2 RNA (RT-PCR) NEGATIVE 06/29/22 06/29/22 08:24 08:24 WBC 5.5 RBC 4.80 Hgb 13.9 L Hct 41.6 L MCV 86.7 MCH 29.0 MCHC 33.4 RDW 12.3 Plt Count 276 MPV 9.5 Immature Gran % (Auto) 0.2 Neut % (Auto) 52.8 Lymph % (Auto) 35.8 [place] % (Auto) 7.3 Eos % (Auto) 2.6 Baso % (Auto) 1.3 Lymph # (Auto) 2.0 [place] # (Auto) 0.4 Eos # (Auto) 0.1 Baso # (Auto) 0.1 Abs Immat Gran (auto) 0.01 Absolute Neuts (auto) 2.9 Absolute Nucleated RBC 0.000 Nucleated RBC % (auto) 0.0 Sodium 138 Potassium 4.3 Chloride 105 Carbon Dioxide 25 Anion Gap 12 BUN 11 Creatinine 0.93 Estim Creat Clear Calc 139.5 Estimated GFR > 60 Fasting Glucose 103 H Calcium 9.2 Total Bilirubin 0.8 AST 40 H ALT 49 H Alkaline Phosphatase 56 Total Protein 7.0 Albumin 4.1 Triglycerides 48 Cholesterol 120 LDL Cholesterol, Calc 82 HDL Cholesterol 29 TSH 3.51 Urine Color Urine Appearance Urine pH Ur Specific [place] Urine Protein Urine Glucose (UA) Urine Ketones Urine Blood Urine Nitrite Ur Leukocyte Esterase Urine Opiates Screen Urine Fentanyl Screen Ur Barbiturates Screen Ur Phencyclidine Scrn Ur Amphetamines Screen U Benzodiazepines Scrn Urine Cocaine Screen U Marijuana (THC) Screen Influenza Type A (PCR) Influenza Type B (PCR) RSV RNA Qual (PCR) SARS-CoV-2 RNA (RT-PCR) DS: Summary Hospital Course Hospital Course: Subjective Notes: Dimas Warning (given and shows understanding) and Conditional Voluntary Narrative: Mr. Jessica is a 21 year-old male no prior psych admission or treatment but it appears symptoms have started over a year ago. Per father, pt had brief episode of paranoia and psychosis about one year ago but pt was not brought to the hospital nor the family seek outpatient psychiatric treatment. Per father, pt has been increasingly more socially withdrawn, not showing much motivation to seek a job or engage in activities outside of his house. In the past 2 week, pt has been reporting hearing voices telling her that his father has killed people or sold drugs. Pt has not been sleeping for 2 weeks. Pt has been more anxious and suspicious. He has been seen talking to someone who is not there. Pt has told family that voices are telling him that he should harm himself or his family. Pt has reported to father that he worries about their safety as voices telling her that someone may harm his family. Pt finally called the police and told them that there was a stranger in his house and at that time he agreed to come to the hospital for further evaluation. In the ED, utox is negative. CBC shows normocytic anema. CMP with very slightly elevated AST/ALT. TSH wnl. In the ED, pt was agitated requiring haldol and ativan IM with good effect. When pt was brought to the unit, he grabbed an ID from staff and eloped. He was b rought by police back to the unit. No further agitation after that. Today, pt reports he was worried about his safety and his family safety and therefore elope. He reports hearing less voices, denies voices telling him to harm himself or others. He denies SI/HI. He reports fair sleep. Past Psychiatric History: Inpt: none before OP: none Past med trials: none Suicide attempt: none Per father no hx of aggression towards self or others prior to this admission. Medical Evaluation Reviewed: Yes HOSPITAL COURSE On the unit, pt was admitted on a cv and placed initially on 15 minutes checks for safety. Pt elope on arrival to the unit due to paranoid delusions. He was placed on one to one for safety. We discussed risks, benefits and alternative treatment options. Pt agreed to start risperidone for auditory hallucinations and paranoid delusions. His affect gradually presented as much less guarded, more visible on the unit. He denies SI/HI. He showed increased insight into symptoms and need for treatment. He was slightly guarded and suspicious about medications at times but also asked appropriate questions about it. Both mother and father report pt appeared in much improved condition and ready to be discharged. They denied safety concerns at time of discharge and advocated for short admission. No signs of aggression towards self or others. Pt pleasant and cooperative thereafter. Status at Discharge Cognitive/behavioral status at discharge: Pt with brighter, non labile affect. No SI/HI. No over delusional content. No VH/AH. Fair sleep. No signs of aggression towards self or others. Functional status at discharge: independent ambulation Overall status at discharge: patient is progressing back to baseline Time Spent with Patient Time attestation: Total time managing care of this patient today __30__ minutes. 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 Referrals: Jimmy Vaughn MD [Primary Care Provider] - 1 Week (appt made for july 09 @11:30am) Discharge Medications: New risperidone 1 mg Tablet 1 mg PO BID Qty: 60 0RF Discharge Orders: Discharge Order (Routine); Ordered 07/02/22 Ordered By: Moon Hart Diet: Regular diet Activity on Discharge: As tolerated Stand Alone Forms: Patient Portal Discharge page Care Plan Goals: 1. Maintain mood 2. No SI/HI Health Concerns: Follow up with PCP Plan of Treatment: 1. Take medications as prescribed 2. Go to nearest ED or call 911 in event of emergency Assessment: Pt with calm, slightly constricted affect. No SI/HI. No overt delusions nor VH/AH. Sleep is fair. Appetite is good. No signs of aggression towards self or others.
--- NOTE | 2022-07-02 08:58 | PC.NURSE ---
Jeffrey is alert, fully oriented, pleasant and cooperative with discharge process. He denies ideation, plan or intent to harm self or others. Appetite and sleep are reportedly good. Focus is notably good. He denies physical complaint. He verbalizes understanding of discharge plan including medication and appointments.
[2022-07-02] MEDS: risperiDONE 1 MG TABLET PO (09:00)
== END 2022-07-02 10:28 | disposition home or self-care (01) | DRG 750 ==
LOC: HO.ED 06-27 02:24 → HO.PADLT16 06-27 17:18
PROVIDERS: Physician Assistant Medical; Admitting Provider Psychiatry & Neurology Psychiatry; Emergency Provider Emergency Medicine; PCP Pediatrics; Visit Provider Social Worker
DX: F20.9 Schizophrenia, unspecified (principal); Z20.822 Contact with and (suspected) exposure to COVID-19; Z78.1 Physical restraint status; Z79.899 Other long term (current) drug therapy
CPT/HCPCS: 0241U; 36415; 80053; 80061; 80307; 81003; 84443; 85025; 92950; 93005; 99285; S9485

== ENCOUNTER 2023-03-28 23:08 | Emergency (ER) | payer SELFPAY ==
[2023-03-28 23:09] VITALS: BP 157/81; PULSE 91; RESP 18; TEMP 36.9; O2SAT 97; BMI 35.2
--- NOTE | 2023-03-28 23:46 | PC.NURSE ---
pt calm and cooperative. ambulates back to the pod. pt changed into ligature free hospital attire. pt denies si/hi at this time. med rec completed awaiting to be seen by ed provider
[2023-03-28 23:50] LABS: Appearance Urine Cloudy; Color Urine Yellow; Glucose Urine UA Negative (Negative); Leukocyte Esterase Urine Negative (Negative); Nitrite Urine Negative (Negative); PH 5.5 (5.0-9.0); Specific Gravity - Urine 1.025 (1.005-1.025); Urine Blood Negative (Negative); Urine Ketones Trace mg/dL (Negative); Urine Protein Negative (Neg-Trace)
[2023-03-28 23:52] LABS: Amphetamine Screen Urine Not Detected (Not Detect); Barbiturates, Urine Not Detected (Not Detect); Benzodiazepines Screen Urine Not Detected (Not Detect); Cannabinoid Screen Urine Not Detected (Not Detect); Cocaine Screen Urine Not Detected (Not Detect); Fentanyl, urine Not Detected (Not Detect); Opiate Screen Urine Not Detected (Not Detect); Phencyclidine Screen Urine Not Detected (Not Detect)
[2023-03-29 00:01] LABS: Bacteria Urine None Seen (None Seen); Hyaline Casts Urine 0-2 /LPF (0-2); RBC Urine 0-2 /HPF (0-2); Squamous Epithelial Cell Urine 0-2 /HPF (0-2); WBC Urine 0-5 /HPF (0-5)
[2023-03-29 00:25] LABS: Basophils Absolute Auto 0.1 X10*3/uL (0.0-0.2); Basophils Percent Auto 0.7 % (0-2); Eosinophils Absolute Auto 0.1 X10*3/uL (0.0-0.4); Eosinophils Percent Auto 1.3 % (0-4); Hematocrit 40.9 % (42.0-52.0); Hemoglobin 14.1 g/dl (14.0-18.0); Imm Gran Abs Auto 0.04 X10*3/uL (0.00-0.03); Imm Gran Pct Auto 0.4 % (0.0-0.4); Lymphocytes Absolute Auto 2.4 X10*3/uL (1.2-4.9); Lymphocytes Percent Auto 21.9 % (20-40); MANUAL DIFF FLAG SCAN; Mean Corpuscular HGB Conc 34.5 g/dl (31.0-36.0); Mean Corpuscular Hemoglobin 29.1 pg (27.0-33.0); Mean Corpuscular Volume 84.5 fL (80.0-98.0); Mean Platelet Volume 9.6 fL (9.4-12.4); Monocytes Absolute Auto 0.6 X10*3/uL (0.1-1.2); Neutrophils Absolute Auto 7.8 x10*3/uL (2.0-8.3); Neutrophils Percent Auto 70.7 % (45-73); PLT CLUMP 1; Red Blood Count 4.84 X10*6/uL (4.60-5.80); Red Cell Distribution Width 12.6 % (11.0-16.0); SCAN SMEAR FLAG 1
[2023-03-29 00:29] LABS: Influenza A PCR NEGATIVE (Negative); Influenza B PCR NEGATIVE (Negative); Resp Syncy Virus RNA Qual PCR NEGATIVE (Negative); SARS COV2 PCR INHOUSE NEGATIVE (Negative)
[2023-03-29 00:41] LABS: Alanine Aminotransferase 44 U/L (0-40); Albumin Level 4.4 g/dL (3.5-5.0); Alkaline Phosphatase 60 U/L (39-117); Anion Gap 15 (12-20); Aspartate Amino Transferase 35 U/L (5-37); Bilirubin Total 0.6 mg/dL (0.0-1.0); Blood Urea Nitrogen 11 mg/dL (9-16); Calcium 9.4 mg/dL (8.4-10.2); Carbon Dioxide 23 mmol/L (22-29); Chloride 106 mmol/L (96-108); Creatinine Clr Calc Pharmacy 113.7; Estimated Glomerular Filt Rate > 60; Ethanol < 10 mg/dL; Glucose Random 130 mg/dL (60-115); Potassium 3.8 mmol/L (3.3-5.1); Sodium 140 mmol/L (135-145); Total Protein 8.2 g/dL (6.5-8.0)
[2023-03-29 00:42] LABS: Platelet Count 277 X10*3/uL (160-400); SLIDE REVIEW VERIFIED
--- NOTE | 2023-03-29 00:56 | ED_ITS ---
HPI - Psych General Chief Complaint: Psychiatric Symptoms Stated Complaint: Mental Health Eval Time Seen by Provider: 03/28/23 23:48 Source: patient Mode of arrival: ambulatory History of Present Illness HPI Narrative: 22-year-old male presents with his father, with whom he lives, with purportedly depression and anxiety, however when I ask patient regarding these symptoms he tells me a little. Patient denies thoughts of wanting to harm himself, denies being involved in any outpatient therapy and father reports that there have been recent flights with family members, specifically cousin. Related Data Previous Rx's Medication Instructions Recorded risperidone 1 mg tablet 1 mg PO BID #60 tabs 07/02/22 Allergies Allergy/AdvReac Type Severity Reaction Status Date / Time No Known Allergies Allergy Verified 06/26/22 20:43 Review of Systems 2 Review of Systems: Pertinent positives and negatives as stated in HPI PMFSH Past Medical History Source: nursing notes reviewed Social History Social History Household Members: Family Household Members Other:: Dad Housing: House Do you presently have visiting nurse or other home services: No Alcohol intake: never Patient Tobacco Use Status: Never used Tobacco Smoked in Last 30 Days: No Use of substances other than those prescribed or required for medical reasons: No Substance Use Type: Marijuana Advance Directives: No Advance Directives Information Provided: No service: No Sexual orientation: Straight/Heterosexual Physical Exam 2 Vital Signs: Vital Signs: Last Vital Signs Temp 98.4 F 03/28/23 23:09 Pulse 91 03/28/23 23:09 Resp 18 03/28/23 23:09 BP 157/81 H 03/28/23 23:09 Pulse Ox 97 03/28/23 23:09 O2 Del Method Room Air 03/28/23 23:09 BMI result Body Mass Index 35.2 VITAL SIGNS: Reviewed. GENERAL: Well developed, well nourished, in no acute distress. HEAD: Normocephalic/atraumatic EYES: PERRLA, EOMI EARS: Ext canals without abnormality NOSE: Nares patent bilateral OROPHARYNX: no oral lesions noted, posterior pharynx clear NECK: Supple, no adenopathy LUNGS: Normal breath sounds. No adventitious sounds or accessory muscle use. SpO2<97> CARDIOVASCULAR: Regular rate and rhythm without noted murmurs ABDOMEN: Soft, non-tender, non-distended with bowel sounds. MUSCULOSKELETAL: No tenderness, deformities, or effusions noted on gross inspection. EXTREMITIES: No cyanosis, clubbing or edema. SKIN: Inspection of the skin reveals no rashes NEUROLOGIC: Alert and oriented x 4. Strength and sensation to light touch were grossly intact x 4, cranial nerves 2-12 are grossly intact. Medical Decision Making Medical Decision Making [facility] Narrative: 22-year-old male with history and clinical presentation behavioral outbursts in the form of physical altercations and intermittent compliance with risperidone. When patient was asked what his goals are for presenting here he states he does not know. I reviewed all investigations and hematologic indices show a borderline elevation of leukocytes but otherwise no left shift and H no reports of infectious etiology and no anemia or thrombocytopenia. Chemistry indices do not demonstrated KASSIE and there is no electrolyte derangements, there is a chronic small elevation in transaminases. Urinalysis is negative for UTI or hematuria. Toxicology is negative and alcohol is undetectable. Viral testing negative for influenza/RSV/COVID. Patient is otherwise medically cleared for further evaluation by the care team. Patient placed in physician observation because the patient needed more time for evaluation by the care team. At the time observation was started the patient's vital signs were stable, patient is alert and oriented, neuro: Nonfocal, CV RRR, lungs clear Differential Diagnosis Differential Diagnoses: The differential diagnosis associated with the presentation includes Please see the discussion above Admission/Observation Consideration of admission/observation: Escalation of care including admission/observation considered Please see the discussion above Consult Healthcare Provider Management of the patient was discussed with: Employee Operations Examiner Please see the discussion above Lab Data [facility] Lab Attestation statement: I reviewed the patient's lab results. Please see the discussion above 03/29/23 00:16 03/29/23 00:16 Labs: Lab Results 03/28/23 03/29/23 Range/Units 23:38 00:16 WBC 11.0 H (4.8-10.8) X10*3/uL RBC 4.84 (4.60-5.80) X10*6/uL Hgb 14.1 (14.0-18.0) g/dl Hct 40.9 L (42.0-52.0) % MCV 84.5 (80.0-98.0) fL MCH 29.1 (27.0-33.0) pg MCHC 34.5 (31.0-36.0) g/dl RDW 12.6 (11.0-16.0) % Plt Count 277 (160-400) X10*3/uL MPV 9.6 (9.4-12.4) fL Immature Gran % (Auto) 0.4 (0.0-0.4) % Neut % (Auto) 70.7 (45-73) % Lymph % (Auto) 21.9 (20-40) % [place] % (Auto) 5.0 (2-11) % Eos % (Auto) 1.3 (0-4) % Baso % (Auto) 0.7 (0-2) % Lymph # (Auto) 2.4 (1.2-4.9) X10*3/uL [place] # (Auto) 0.6 (0.1-1.2) X10*3/uL Eos # (Auto) 0.1 (0.0-0.4) X10*3/uL Baso # (Auto) 0.1 (0.0-0.2) X10*3/uL Abs Immat Gran (auto) 0.04 H (0.00-0.03) X10*3/uL Absolute Neuts (auto) 7.8 (2.0-8.3) x10*3/uL Absolute Nucleated RBC 0.000 (0.0-0.012) X10*3/uL Nucleated RBC % (auto) 0.0 (0.0-0.2) /100WBC Smear Tech's Comments VERIFIED Sodium 140 (135-145) mmol/L Potassium 3.8 (3.3-5.1) mmol/L Chloride 106 (96-108) mmol/L Carbon Dioxide 23 (22-29) mmol/L Anion Gap 15 (12-20) BUN 11 (9-16) mg/dL Creatinine 1.15 (0.5-1.4) mg/dL Estim Creat Clear Calc 113.7 Estimated GFR > 60 Random Glucose 130 H (60-115) mg/dL Calcium 9.4 (8.4-10.2) mg/dL Total Bilirubin 0.6 (0.0-1.0) mg/dL AST 35 (5-37) U/L ALT 44 H (0-40) U/L Alkaline Phosphatase 60 (39-117) U/L Total Protein 8.2 H (6.5-8.0) g/dL Albumin 4.4 (3.5-5.0) g/dL Urine Color Yellow Urine Appearance Cloudy Urine pH 5.5 (5.0-9.0) Ur Specific [place] 1.025 (1.005-1.025) Urine Protein Negative (Neg-Trace) mg/dL Urine Glucose (UA) Negative (Negative) mg/dL Urine Ketones Trace (Negative) mg/dL Urine Blood Negative (Negative) Urine Nitrite Negative (Negative) Ur Leukocyte Esterase Negative (Negative) Urine RBC 0-2 (0-2) /HPF Urine WBC 0-5 (0-5) /HPF Ur Squamous Epith Cells 0-2 (0-2) /HPF Urine Bacteria None Seen (None Seen) Hyaline Casts 0-2 (0-2) /LPF Urine Opiates Screen Not Detected (Not Detect) Urine Fentanyl Screen Not Detected (Not Detect) Ur Barbiturates Screen Not Detected (Not Detect) Ur Phencyclidine Scrn Not Detected (Not Detect) Ur Amphetamines Screen Not Detected (Not Detect) U Benzodiazepines Scrn Not Detected (Not Detect) Urine Cocaine Screen Not Detected (Not Detect) U Marijuana (THC) Screen Not Detected (Not Detect) Ethyl Alcohol < 10 mg/dL Influenza Type A (PCR) NEGATIVE (Negative) Influenza Type B (PCR) NEGATIVE (Negative) RSV RNA Qual (PCR) NEGATIVE (Negative) SARS-CoV-2 RNA (RT-PCR) NEGATIVE (Negative) External Record Review External record reviewed: Outpatient record, Prior outpatient labs and Prior outpatient radiology Critical Care Time Critical Care Time Critical Care Time: Yes Total Critical Care Time: 30 Attestation: I personally attest to this time spent taking care of the patient. Discharge Plan Discharge Clinical Impression: Schizophreniform disorder, Schizophrenia Patient Disposition: Still a Patient Prescriptions: No Action risperidone 1 mg Tablet 1 mg PO BID Qty: 60 0RF Interventions: Hart-Suicide Risk Severity Scale Last Done: 03/28/23 23:42
[2023-03-29] MEDS: risperiDONE 1 MG TABLET PO (09:17)
[2023-03-29 10:37] VITALS: RESP 18
--- NOTE | 2023-03-29 12:48 | MHC.CARE ---
CARE Team completed CCS referral and activated it
--- NOTE | 2023-03-29 13:00 | PHA.MEDREC ---
Pharmacy Consult ? Medication Reconciliation Pharmacy has reviewed the medication reconciliation completed by Daja. Charo Joe, PharmD
--- NOTE | 2023-03-29 13:49 | MHC.CARE ---
CARE Team spoke with [facility] they are still reviewing [facility]CS referral
[2023-03-29 15:22] VITALS: RESP 16
[2023-03-29 16:12] VITALS: RESP 18
[2023-03-29 18:33] VITALS: RESP 16
--- NOTE | 2023-03-29 21:07 | MHC.CARE ---
Pt's mother contacted team who inquires about [facility] placement. T/w contacted [facility] and was advised to call in the morning. CARE Team was informed that pt was still being reviewed but will likely not have any admissions overnight. Pt's mother was here to get pt as pt was becoming antsy and wanted to leave. Pt's mother was advised to have pt call [facility] tomorrow morning if still interested
== END 2023-03-29 21:15 | disposition home or self-care (01) ==
PROVIDERS: Emergency Provider Student in an Organized Health Care Education/Training Program; PCP Pediatrics
DX: F25.1 Schizoaffective disorder, depressive type (principal); Z20.822 Contact with and (suspected) exposure to COVID-19; Z20.828 Contact with and (suspected) exposure to other viral communicable diseases; Z79.899 Other long term (current) drug therapy
CPT/HCPCS: 0241U; 36415; 80053; 80307; 81001; 85025; 99284; S9485

== ENCOUNTER 2024-10-27 10:17 | Inpatient (IN) | payer OTHER, SELFPAY ==
[2024-10-27 10:23] VITALS: BP 133/84; PULSE 92; RESP 18; TEMP 36.3; O2SAT 97; BMI 37.2
--- NOTE | 2024-10-27 10:47 | ED.GENADULT ---
HPI - General Adult General Chief complaint: General Medical Stated complaint: Full body Cramp Time Seen by Provider: 10/27/24 10:47 Source: patient Mode of arrival: ambulatory Limitations: no limitations History of Present Illness ED Provider: HPI narrative: 23-year-old male, states has been having cramps in his body yesterday, he has been working in the heat, but feels like he has been hydrating well, denies drink alcohol, denies drug use, today woke up and has essentially full body cramps when he sits up his diaphragm spasms, has cramps bilateral calves. He reports to be otherwise healthy not on any medications. Related Data Previous Rx's ?Medication ?Instructions ?Recorded risperidone 1 mg tablet 1 mg PO BID #60 tabs 07/02/22 Allergies Allergy/AdvReac Type Severity Reaction Status Date / Time No Known Allergies Allergy Verified 10/27/24 10:25 Review of Systems Constitutional: Constitutional: Reports as per [facility] Social History Social History Household Members: Family Household Members Other:: Dad Housing: House Do you presently have visiting nurse or other home services: No Alcohol intake: never Patient Tobacco Use Status: Never used Tobacco Smoked in Last 30 Days: No Use of substances other than those prescribed or required for medical reasons: No Substance Use Type: Marijuana Advance Directives: No Advance Directives Information Provided: Yes service: No Sexual orientation: Straight/Heterosexual Physical Exam ED Vital Signs: Vital Signs - 24 hr 10/27/24 10:23 Temperature 97.4 F Pulse Rate 92 Respiratory Rate 18 Blood Pressure 133/84 Pulse Oximetry 97 Oxygen Delivery Method Room Air BMI result Body Mass Index 37.2 Const Other: Gen: ?Overall well-appearing patient HEENT: PERRLA, EOMI, MMM, Neck: Supple, no LAD CV: RRR, no obvious murmurs appreciated Resp: ?No wheezing rales rhonchi no stridor moving air well Abd: ?Bowel sounds are present, no tenderness no rebound no rigidity MSK: Tenderness along his muscles on sitting up spasm of his diaphragm on the left, and tenderness along his back Skin: Warm, dry, intact, Neuro: ?Alert and oriented x3, moving upper and lower extremities symmetrically, no obvious facial asymmetry noted Medications Administered Generic Name Dose Route Start Last Admin Trade Name Freq PRN Reason Stop Dose Admin Lactated Ringer's 1,000 mls @ 0 mls/hr 10/27/24 11:45 10/27/24 11:52 Lr IV 999 mls/hr .Q0M [facility] Administration Wide Open Discontinued Medications Generic Name Dose Route Start Last Admin Trade Name Freq PRN Reason Stop Dose Admin Sodium Chloride 1,000 mls @ 999 mls/hr 10/27/24 11:45 10/27/24 11:51 Ns IV 10/27/24 12:45 999 mls/hr .Q1H1M [facility]OM Administration Medical Decision Making Medical Decision Making [facility] Narrative: Blood work revealed KASSIE, hyponatremia likely hypovolemic hyponatremia, LFTs elevated with AST higher than ALT patient denies EtOH issues, we will add on creatinine kinase, he works in the heat and has been also walk at home sounds like from prolonged time in the heat as well, we will give 2 L of fluids, we will recheck his labs, otherwise is not having any urinary symptoms to suspect postobstructive symptoms, and his LFTs likely elevated due to the fact that this is somewhat of a shock liver state due to dehydration. Otherwise vital signs reassuring. 14:00, CK came back at 10,000 and in the setting of KASSIE we will admit for rhabdomyolysis Differential Diagnosis Differential Diagnoses: The differential diagnosis associated with the presentation includes Dehydration, electrolyte derangements, heat exhaustion, ETOH use, rhabdomyolysis Lab Data 10/27/24 10:59 10/27/24 10:59 Labs: Lab Results 10/27/24 Range/Units 10:59 WBC 13.3 H (4.8-10.8) X10*3/uL RBC 5.32 (4.60-5.80) X10*6/uL Hgb 15.6 (14.0-18.0) g/dl Hct 44.1 (42.0-52.0) % MCV 82.9 (80.0-98.0) fL MCH 29.3 (27.0-33.0) pg MCHC 35.4 (31.0-36.0) g/dl RDW 12.6 (11.0-16.0) % Plt Count 278 (160-400) X10*3/uL MPV 9.3 L (9.4-12.4) fL Immature Gran % (Auto) 0.2 (0.0-0.4) % Neut % (Auto) 78.4 H (45-73) % Lymph % (Auto) 13.0 L (20-40) % [place] % (Auto) 7.6 (2-11) % Eos % (Auto) 0.4 (0-4) % Baso % (Auto) 0.4 (0-2) % Lymph # (Auto) 1.7 (1.2-4.9) X10*3/uL [place] # (Auto) 1.0 (0.1-1.2) X10*3/uL Eos # (Auto) 0.1 (0.0-0.4) X10*3/uL Baso # (Auto) 0.1 (0.0-0.2) X10*3/uL Abs Immat Gran (auto) 0.03 (0.00-0.03) X10*3/uL Absolute Neuts (auto) 10.4 H (2.0-8.3) x10*3/uL Absolute Nucleated RBC 0.000 (0.0-0.012) X10*3/uL Nucleated RBC % (auto) 0.0 (0.0-0.2) /100WBC Sodium 132 L (135-145) mmol/L Potassium 4.0 (3.3-5.1) mmol/L Chloride 95 L (96-108) mmol/L Carbon Dioxide 25 (22-29) mmol/L Anion Gap 16 (12-20) BUN 24 H (9-16) mg/dL Creatinine 2.17 H (0.5-1.4) mg/dL Estim Creat Clear Calc 61.4 Estimated GFR 38 Random Glucose 113 (60-115) mg/dL Calcium 9.5 (8.4-10.2) mg/dL Magnesium 2.9 H (1.6-2.6) mg/dL Total Bilirubin 1.4 H (0.0-1.0) mg/dL AST 241 H (5-37) U/L ALT 81 H (0-40) U/L Alkaline Phosphatase 71 (39-117) U/L Total Creatine Kinase 12719 H (38-174) U/L Total Protein 8.6 H (6.5-8.0) g/dL Albumin 5.0 (3.5-5.0) g/dL Discharge Plan Discharge Clinical Impression: Rhabdomyolysis, KASSIE (acute kidney injury) Patient Disposition: Admitted As Inpatient Print Language: Israeli
[2024-10-27 11:03] LABS: Basophils Absolute Auto 0.1 X10*3/uL (0.0-0.2); Basophils Percent Auto 0.4 % (0-2); Eosinophils Absolute Auto 0.1 X10*3/uL (0.0-0.4); Eosinophils Percent Auto 0.4 % (0-4); Hematocrit 44.1 % (42.0-52.0); Hemoglobin 15.6 g/dl (14.0-18.0); Imm Gran Abs Auto 0.03 X10*3/uL (0.00-0.03); Imm Gran Pct Auto 0.2 % (0.0-0.4); Lymphocytes Absolute Auto 1.7 X10*3/uL (1.2-4.9); MANUAL DIFF FLAG NO; Mean Corpuscular HGB Conc 35.4 g/dl (31.0-36.0); Mean Corpuscular Hemoglobin 29.3 pg (27.0-33.0); Mean Corpuscular Volume 82.9 fL (80.0-98.0); Mean Platelet Volume 9.3 fL (9.4-12.4); Monocytes Percent Auto 7.6 % (2-11); Neutrophils Absolute Auto 10.4 x10*3/uL (2.0-8.3); Neutrophils Percent Auto 78.4 % (45-73); Platelet Count 278 X10*3/uL (160-400); Red Blood Count 5.32 X10*6/uL (4.60-5.80); Red Cell Distribution Width 12.6 % (11.0-16.0); White Blood Count 13.3 X10*3/uL (4.8-10.8)
--- OUTSIDE RECORDS SUMMARY | 2024-10-27 11:10 | XMS_ITS | Encounter Summary ---
Author Organization [facility] Address [address] [place] [id number] Phone Care Team Providers Care Salvage Determiner Name Role Phone Jimmy Vaughn MD Primary Care Provider [phone] Encounter Details Date Type Department Care Team (Late st Contact Info) Description 12/21/2010 Conversion Encounter [facility] [address] [place] [address] [place] [id number] Social History Tobacco Use Types Packs/Day Years Used Date Smoking Tobacco: Never Assessed Sex and Gender Information Value Date Recorded Sex Assigned at Not on file Legal Sex Male 6:21 PM EDT Gender Identity Not on file Sexual Orientation Not on file documented as of this encounter Plan of Treatment Not on file documented as of this encounter Visit Diagnoses Not on filedocumented in this encounter Care Teams Salvage Determiner Relationship Specialty Start Date End Date Jimmy Vaughn MD [address] [facility] [place] [address] PCP - General 09/15/17 documented as of this encounter
[2024-10-27 11:18] LABS: Alanine Aminotransferase 81 U/L (0-40); Alkaline Phosphatase 71 U/L (39-117); Anion Gap 16 (12-20); Aspartate Amino Transferase 241 U/L (5-37); Blood Urea Nitrogen 24 mg/dL (9-16); Calcium 9.5 mg/dL (8.4-10.2); Carbon Dioxide 25 mmol/L (22-29); Chloride 95 mmol/L (96-108); Creatinine Clr Calc Pharmacy 61.4; Estimated Glomerular Filt Rate 38; Glucose Random 113 mg/dL (60-115); Magnesium 2.9 mg/dL (1.6-2.6); Sodium 132 mmol/L (135-145); Total Protein 8.6 g/dL (6.5-8.0)
[2024-10-27 11:36] LABS: Bilirubin Total 1.4 mg/dL (0.0-1.0)
[2024-10-27] MEDS: 0.9 % Sodium Chloride 1,000 ML 999 ML IV (11:51)
[2024-10-27] MEDS: Lactated Ringers 1,000 ML 999 ML IV ×2 (11:52→15:14)
--- NOTE | 2024-10-27 14:49 | P.HPHOSP_ITS ---
History of Present Illness Date of Service: 10/27/24 Chief Complaint: Rhabdomylosis A 23-year-old male with a past medical history of schizophrenia, otherwise healthy, presented to the Emergency Department (ED) with complaints of generalized muscle cramping and fatigue. 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 He experienced cramping all over his body, which resolved after drinking Pedialyte. He denies recent exercise, trauma, or use of new substances. In the ED, laboratory testing revealed a significantly elevated creatine phosphokinase (CPK) of 10,403 U/L and creatinine of 2.17 mg/dL, suggestive of rhabdomyolysis and acute kidney injury (KASSIE). He was treated with intravenous fluids (IVF) and admitted for further management. Review of Systems 2 Review of Systems: Gen: no fever Resp: no sob, no cough CV: no chest, no EDWARDS, no leg edema GI: No n/v, no abd pain Neuro: No confusion MSK: bodyache PMFSH Social History Household Members: Family Household Members Other:: Dad Housing: House Do you presently have visiting nurse or other home services: No Alcohol intake: never Patient Tobacco Use Status: Never used Tobacco Substance Use Type: Marijuana service: No Sexual orientation: Straight/Heterosexual Meds Allergies Allergy/AdvReac Type Severity Reaction Status Date / Time No Known Allergies Allergy Verified 10/27/24 10:25 Active Medications: Current Medications Lactated Ringer's (Lr) 1,000 mls @ 0 mls/hr IV .Q0M [facility] Last Admin: 10/27/24 11:52 Dose: 999 mls/hr Physical Exam 2 Vital Signs and Narrative: Vital Signs: Last Vital Signs Temp 97.4 F 10/27/24 10:23 Pulse 92 10/27/24 10:23 Resp 18 10/27/24 10:23 BP 133/84 10/27/24 10:23 Pulse Ox 97 10/27/24 10:23 O2 Del Method Room Air 10/27/24 10:23 BMI result Body Mass Index 37.2 Const: Other: General: AO X 3, no acute distress Resp: CTA bilateral CVS: S1,S2,RRR GI: +BS, NT, no distention Skin: No rash Neuro: motor grossly intact Psych: appropriate affect Results Labs 10/27/24 10:59 10/28/24 06:03 Labs: Laboratory Results - last 24 hr 10/27/24 10:59 MCV 82.9 MCH 29.3 MCHC 35.4 RDW 12.6 Plt Count 278 MPV 9.3 L Immature Gran % (Auto) 0.2 Neut % (Auto) 78.4 H Lymph % (Auto) 13.0 L [place] % (Auto) 7.6 Eos % (Auto) 0.4 Baso % (Auto) 0.4 Lymph # (Auto) 1.7 [place] # (Auto) 1.0 Eos # (Auto) 0.1 Baso # (Auto) 0.1 Abs Immat Gran (auto) 0.03 Absolute Neuts (auto) 10.4 H Absolute Nucleated RBC 0.000 Nucleated RBC % (auto) 0.0 Anion Gap 16 Estim Creat Clear Calc 61.4 Estimated GFR 38 Random Glucose 113 Calcium 9.5 Magnesium 2.9 H Total Bilirubin 1.4 H AST 241 H ALT 81 H Alkaline Phosphatase 71 Total Creatine Kinase 60479 H Total Protein 8.6 H Albumin 5.0 Assessment and Plan (1) KASSEI (acute kidney injury): Status: Acute (2) Rhabdomyolysis: Status: Acute Plan 23/M with schizophrenia here with Rhabdomyolysis: Likely secondary to heat exposure and physical exertion (working in a hot environment and walking home on a very hot day). Elevated CPK (10,403 U/L) confirms muscle breakdown. Acute Kidney Injury (KASSIE): Secondary to rhabdomyolysis, as evidenced by creatinine of 2.17 mg/dL. Likely due to myoglobin-induced renal tubular damage. Dehydration: Suspected given heat exposure and resolution of cramping with Pedialyte, though now improved with IVF. -Aggresive IVF hydration with LR -Monitor CPK daily, electrolyes, and divalents -consider checking urine Myoglobin -Nephrology consult Elevated LFTs: likely related to above -Monitor LFTs Schizophrenia -Stable without acute decompensation -continue risperidal 1 mg bid Levenox for DVT prophylaxis Full code regular diet Quality Stroke Does the patient have a stroke diagnosis?: No VTE Prior VTE?: No VTE Risk Level:: Medical - moderate - high VTE Device Contraindication: Treatment Not Indicated VTE Drug Contraindication: N/A - Med Ordered
--- NOTE | 2024-10-27 15:02 | PHA.MEDREC ---
Addendum entered by Belle Schwartz RPh 10/27/24 15:27: reviewed by [facility]. Original Note: Pharmacy Consult ? Medication Reconciliation Pharmacy has completed the medication reconciliation. Patient states he only takes Risperidone 1 mg BID. Patient is not taking Cetirizine 10 mg.
[2024-10-27] MEDS: Lactated Ringers 1,000 ML 200 ML IVCONT ×2 (15:32→20:28)
--- NOTE | 2024-10-27 17:07 | PM.CNNEP ---
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 Hips labs were worrisome for KASSIE with creatinine of 2.17 secondary to rhabdomyolysis with CPK of 10,403. Sodium is 132, K 4, calcium 9.5 Review of Systems Constitutional: Reports anorexia, Reports body ache(s) and Reports fatigue Eyes: Denies blurry vision and Denies exophthalmos Denies Normal hearing present and Denies bleeding gums Cardiovascular: Reports Abdominal Cramping after Meds, Denies Abdominal Distension and Denies cool extremities Respiratory: Denies change in phlegm color, Denies chest congestion and Denies hemoptysis Gastrointestinal: Denies abdominal pain and Denies hematochezia Musculoskeletal: Denies abnormal gait, Reports back pain, Reports myalgias, Reports muscle cramps and Reports muscle weakness Skin/Breast: Denies bleeding lesions, Denies changing lesions, Denies dry skin and Denies hirsutism Denies Normal hearing present, Denies Neuro-related abnormal movements, Denies Abnormal speech present, Denies abnormal gait and Denies behavioral changes Psychiatric: Denies abnormal sleep pattern and Denies behavioral changes Endocrine: Reports fatigue, Denies flushing and Denies heat intolerance PMFSH Social History Social History Household Members: Family Household Members Other:: Dad Housing: House Do you presently have visiting nurse or other home services: No Alcohol intake: never Patient Tobacco Use Status: Never used Tobacco Smoked in Last 30 Days: No Use of substances other than those prescribed or required for medical reasons: No Substance Use Type: Marijuana Advance Directives: No Advance Directives Information Provided: Yes service: No Sexual orientation: Straight/Heterosexual Meds Allergies Allergy/AdvReac Type Severity Reaction Status Date / Time No Known Allergies Allergy Verified 10/27/24 10:25 Active Medications: Current Medications Acetaminophen (Acetaminophen 325 Mg Tablet) 650 mg PO Q6H PRN PRN Reason: Pain, Mild 1-3,fever,headache Calcium Carbonate (Calcium Carbonate 750 Mg Tab.Chew) 750 mg PO Q4H PRN PRN Reason: Heartburn Enoxaparin Sodium (Enoxaparin Sodium 40 Mg/0.4 Ml Syringe) 40 mg SUBCUT Q24H [facility] Last Admin: 10/27/24 15:32 Dose: Not Given Lactated Ringer's (Lr) 1,000 mls @ 0 mls/hr IV .Q0M [facility] Last Infusion: 10/27/24 15:31 Dose: Infused Lactated Ringer's (Lr) 1,000 mls @ 200 mls/hr IVCONT .Q5H [facility] Last Admin: 10/27/24 15:32 Dose: 200 mls/hr Magnesium Hydroxide (Milk Of Magnesia 30 Ml Oral.Susp) 30 ml PO DAILY PRN PRN Reason: Constipation Melatonin (Melatonin 3 Mg Tablet) 6 mg PO BEDTIME PRN PRN Reason: Insomnia Ondansetron HCl (Ondansetron Hcl 4 Mg/2 Ml Vial) 4 mg IVPUSH Q8H PRN PRN Reason: Nausea and Vomiting Polyethylene Glycol (Polyethylene Glycol 3350 17 Gm Powd.Pack) 17 gm PO DAILY PRN PRN Reason: Constipation Risperidone (Risperidone 1 Mg Tablet) 1 mg PO BID [facility] Sodium Chloride (0.9 % Sodium Chloride Flush 3 Ml Syringe) 3 ml IVFLUSH QSHIFT [facility] Last Admin: 10/27/24 15:32 Dose: Not Given Physical Exam Vital Signs: Last Vital Signs Temp 97.4 F 10/27/24 10:23 Pulse 92 10/27/24 10:23 Resp 18 10/27/24 10:23 BP 133/84 10/27/24 10:23 Pulse Ox 97 10/27/24 10:23 O2 Del Method Room Air 10/27/24 10:23 BMI result Body Mass Index 37.2 General: Young male in mild acute distress Nutritional Appearance: well nourished and overweight Eyes: appearance normal, both eyes and all related structures; Alignment and Position: alignment normal and position normal Neck: No lymphadenopathy, no thyromegaly Resp: bilateral air entry equal, no added sounds present Cardio: Regular rate, regular rhythm; Heart sounds: S1 normal heart sound present and S2 normal heart sound present GI: soft, nontender, no guarding, no hepatosplenomegaly : bladder normal to inspection, bladder normal to palpation, no renal angle tenderness Skin: no rashes or lesions noted and elasticity normal Neuro: oriented to person, oriented to place, oriented to time and moves all extremities Neuro Cranial nerves: No Normal hearing present Speech: No Abnormal speech present Results Lab Results 10/27/24 10:59 10/27/24 10:59 Lab results: Chemistry 10/27/24 10:59 Sodium 132 L Potassium 4.0 Carbon Dioxide 25 BUN 24 H Creatinine 2.17 H Calcium 9.5 Hematology 10/27/24 10:59 WBC 13.3 H Hgb 15.6 Plt Count 278 Assessment and Plan (1) Schizophrenia: Status: Acute (2) KASSIE (acute kidney injury): Status: Acute (3) Rhabdomyolysis: Status: Acute Plan Acute kidney injury: Secondary to rhabdomyolysis Rhabdomyolysis is precipitated by heat exhaustion in the setting of risperidone. Withhold risperidone until rhabdomyolysis clears Continue IV fluids at 0150 cc/hour with target urine greater than 150 cc/hour We will get urine drug screen, urinalysis, urine electrolyte and osmoles, phosphorus levels. If the phos levels are high then we will switch LR to normal saline trend CPK and renal function no indication for renal replacement therapy at present. Closely monitor I's and O's, avoid nephrotoxic medications Total time managing care of this patient today: 30 minutes. Procedures Date of Service Date of Service: 10/27/24
[2024-10-27 17:10] VITALS: BMI 37.3
[2024-10-27 17:12] VITALS: BP 143/91; PULSE 82; RESP 18; TEMP 36.7; O2SAT 98
[2024-10-27 18:17] LABS: Alanine Aminotransferase 81 U/L (0-40); Albumin Level 4.2 g/dL (3.5-5.0); Alkaline Phosphatase 61 U/L (39-117); Anion Gap 12 (12-20); Aspartate Amino Transferase 268 U/L (5-37); Bilirubin Total 1.3 mg/dL (0.0-1.0); Blood Urea Nitrogen 20 mg/dL (9-16); Calcium 8.9 mg/dL (8.4-10.2); Carbon Dioxide 26 mmol/L (22-29); Chloride 102 mmol/L (96-108); Creatinine Clr Calc Pharmacy 83.3; Estimated Glomerular Filt Rate 53; Glucose Random 104 mg/dL (60-115); Potassium 3.5 mmol/L (3.3-5.1); Sodium 136 mmol/L (135-145); Total Protein 7.3 g/dL (6.5-8.0)
[2024-10-27 18:43] LABS: Phosphorus 4.3 mg/dL (2.7-4.5)
[2024-10-27 19:07] VITALS: BP 162/91; PULSE 73; RESP 18; TEMP 36.7; O2SAT 98
[2024-10-27 21:06] LABS: Appearance Urine Clear; Color Urine Yellow; Glucose Urine UA Negative (Negative); Leukocyte Esterase Urine Negative (Negative); Nitrite Urine Negative (Negative); PH 5.5 (5.0-9.0); UMIC TRIGGER UA YES; Urine Blood Small (1+) (Negative); Urine Ketones Negative (Negative); Urine Protein Negative (Neg-Trace)
[2024-10-27 21:17] LABS: Amphetamine Screen Urine Not Detected (Not Detect); Barbiturates, Urine Not Detected (Not Detect); Benzodiazepines Screen Urine Not Detected (Not Detect); Buprenorphine Scr Not Detected (Not Detect); Cannabinoid Screen Urine POSITIVE (Not Detect); Cocaine Screen Urine Not Detected (Not Detect); Fentanyl, urine Not Detected (Not Detect); Methadone Screen, Urine Not Detected (Not Detect); Opiate Screen Urine Not Detected (Not Detect); Oxycodone Screen Urine Not Detected (Not Detect); Phencyclidine Screen Urine Not Detected (Not Detect)
[2024-10-27 21:35] LABS: Sodium Urine Random < 20.0 mmol/L
[2024-10-27 21:53] LABS: Bacteria Urine None Seen (None Seen); Hyaline Casts Urine 0-2 /LPF (0-2); Other Crystals Urine Present; Squamous Epithelial Cell Urine 0-2 /HPF (0-2); WBC Urine 0-5 /HPF (0-5)
[2024-10-27 22:42] LABS: Osmolality Urine 232 mosm/kg (373-1093)
[2024-10-28] MEDS: Lactated Ringers 1,000 ML 200 ML IVCONT ×3 (01:30→13:25)
[2024-10-28 04:00] VITALS: BP 148/84; PULSE 93; RESP 18; TEMP 36.7; O2SAT 96
[2024-10-28 06:33] LABS: Anion Gap 10 (12-20); Blood Urea Nitrogen 18 mg/dL (9-16); Calcium 9.3 mg/dL (8.4-10.2); Carbon Dioxide 26 mmol/L (22-29); Chloride 109 mmol/L (96-108); Estimated Glomerular Filt Rate > 60; Glucose Random 107 mg/dL (60-115); Potassium 4.6 mmol/L (3.3-5.1); Sodium 140 mmol/L (135-145)
[2024-10-28 07:47] VITALS: BP 133/65; PULSE 73; RESP 16; TEMP 36.7; O2SAT 95
--- NOTE | 2024-10-28 10:15 | P.PNIM_ITS ---
Subjective Subjective Date of Service: 10/28/24 Interval History: f/u on kassie, acute rhabdo interval history: KASSIE resolved, cpk no signficant change Physical Exam 2 Vital Signs: Vital Signs: Last Vital Signs Temp 98.0 F 10/28/24 07:47 Pulse 73 10/28/24 07:47 Resp 16 10/28/24 07:47 BP 133/65 10/28/24 07:47 Pulse Ox 95 10/28/24 07:47 O2 Del Method Room Air 10/28/24 07:47 BMI result Body Mass Index 37.3 Const: Other: General: AO X 3, no acute distress Resp: CTA bilateral CVS: S1,S2,RRR GI: +BS, NT, no distention Skin: No rash Neuro: motor grossly intact Psych: appropriate affect Objective Data Active Medications Acetaminophen (Acetaminophen 325 Mg Tablet) 650 mg PO Q6H PRN PRN Reason: Pain, Mild 1-3,fever,headache Calcium Carbonate (Calcium Carbonate 750 Mg Tab.Chew) 750 mg PO Q4H PRN PRN Reason: Heartburn Enoxaparin Sodium (Enoxaparin Sodium 40 Mg/0.4 Ml Syringe) 40 mg SUBCUT Q24H [facility] Last Admin: 10/27/24 15:32 Dose: Not Given Documented By: KARMEN Non-Admin Reason: Patient Refused Lactated Ringer's (Lr) 1,000 mls @ 0 mls/hr IV .Q0M [facility] Last Infusion: 10/27/24 15:31 Dose: Infused Documented By: KARMEN Lactated Ringer's (Lr) 1,000 mls @ 200 mls/hr IVCONT .Q5H [facility] Last Admin: 10/28/24 06:32 Dose: 200 mls/hr Documented By: GISELA Magnesium Hydroxide (Milk Of Magnesia 30 Ml Oral.Susp) 30 ml PO DAILY PRN PRN Reason: Constipation Melatonin (Melatonin 3 Mg Tablet) 6 mg PO BEDTIME PRN PRN Reason: Insomnia Ondansetron HCl (Ondansetron Hcl 4 Mg/2 Ml Vial) 4 mg IVPUSH Q8H PRN PRN Reason: Nausea and Vomiting Polyethylene Glycol (Polyethylene Glycol 3350 17 Gm Powd.Pack) 17 gm PO DAILY PRN PRN Reason: Constipation Risperidone (Risperidone 1 Mg Tablet) 1 mg PO BID [facility] On Hold: 10/27/24 21:00 Sodium Chloride (0.9 % Sodium Chloride Flush 3 Ml Syringe) 3 ml IVFLUSH QSHIFT [facility] Last Admin: 10/28/24 07:23 Dose: Not Given Documented By: BEVERLY Non-Admin Reason: IV Running Labs 10/27/24 10:59 10/28/24 06:03 Labs: Laboratory Results - last 24 hr 10/27/24 10/27/24 10/27/24 10:59 17:52 20:44 MCV 82.9 MCH 29.3 MCHC 35.4 RDW 12.6 Plt Count 278 MPV 9.3 L Immature Gran % (Auto) 0.2 Neut % (Auto) 78.4 H Lymph % (Auto) 13.0 L [place] % (Auto) 7.6 Eos % (Auto) 0.4 Baso % (Auto) 0.4 Lymph # (Auto) 1.7 [place] # (Auto) 1.0 Eos # (Auto) 0.1 Baso # (Auto) 0.1 Abs Immat Gran (auto) 0.03 Absolute Neuts (auto) 10.4 H Absolute Nucleated RBC 0.000 Nucleated RBC % (auto) 0.0 Hold Purple Top Anion Gap 16 12 Estim Creat Clear Calc 61.4 83.3 Estimated GFR 38 53 Random Glucose 113 104 Calcium 9.5 8.9 D Phosphorus 4.3 Magnesium 2.9 H Total Bilirubin 1.4 H 1.3 H AST 241 H 268 H ALT 81 H 81 H Alkaline Phosphatase 71 61 Total Creatine Kinase 54558 H Total Protein 8.6 H 7.3 Albumin 5.0 4.2 Urine Color Yellow Urine Appearance Clear Urine pH 5.5 Ur Specific [place] 1.010 Urine Protein Negative Urine Glucose (UA) Negative Urine Ketones Negative Urine Blood Small (1+) H Urine Nitrite Negative Ur Leukocyte Esterase Negative Urine RBC 3-5 H Urine WBC 0-5 Ur Squamous Epith Cells 0-2 Other Crystals Present Urine Bacteria None Seen Hyaline Casts 0-2 Urine Osmolality 232 L Ur Random Sodium < 20.0 Urine Opiates Screen Not Detected Ur Buprenorphine Scrn Not Detected Ur Oxycodone Screen Not Detected Urine Methadone Screen Not Detected Urine Fentanyl Screen Not Detected Ur Barbiturates Screen Not Detected Ur Phencyclidine Scrn Not Detected Ur Amphetamines Screen Not Detected U Benzodiazepines Scrn Not Detected Urine Cocaine Screen Not Detected U Marijuana (THC) Screen POSITIVE H 10/28/24 10/28/24 06:03 06:07 MCV MCH MCHC RDW Plt Count MPV Immature Gran % (Auto) Neut % (Auto) Lymph % (Auto) [place] % (Auto) Eos % (Auto) Baso % (Auto) Lymph # (Auto) [place] # (Auto) Eos # (Auto) Baso # (Auto) Abs Immat Gran (auto) Absolute Neuts (auto) Absolute Nucleated RBC Nucleated RBC % (auto) Hold Purple Top SEE NOTE Anion Gap 10 L Estim Creat Clear Calc 113.0 Estimated GFR > 60 Random Glucose 107 Calcium 9.3 Phosphorus Magnesium Total Bilirubin AST ALT Alkaline Phosphatase Total Creatine Kinase 33921 H Total Protein Albumin Urine Color Urine Appearance Urine pH Ur Specific [place] Urine Protein Urine Glucose (UA) Urine Ketones Urine Blood Urine Nitrite Ur Leukocyte Esterase Urine RBC Urine WBC Ur Squamous Epith Cells Other Crystals Urine Bacteria Hyaline Casts Urine Osmolality Ur Random Sodium Urine Opiates Screen Ur Buprenorphine Scrn Ur Oxycodone Screen Urine Methadone Screen Urine Fentanyl Screen Ur Barbiturates Screen Ur Phencyclidine Scrn Ur Amphetamines Screen U Benzodiazepines Scrn Urine Cocaine Screen U Marijuana (THC) Screen Assessment and Plan (1) KASSIE (acute kidney injury): Status: Acute (2) Rhabdomyolysis: Status: Acute Plan 23/M with schizophrenia here with Rhabdomyolysis: Likely secondary to heat exposure and physical exertion (working in a hot environment and walking home on a very hot day). Elevated CPK (10,403 U/L) confirms muscle breakdown. No signicant change in CPK level today 14421 U/L Acute Kidney Injury (KASSIE): Secondary to rhabdomyolysis, as evidenced by creatinine of 2.17 mg/dL. Likely due to myoglobin-induced renal tubular damage. Resolved Cr 1.18 mg/dL Dehydration: Suspected given heat exposure and resolution of cramping with Pedialyte, though now improved with IVF. -Aggresive IVF hydration with LR -Monitor CPK daily, electrolyes, and divalents -consider checking urine Myoglobin -Nephrology consult noted, holding risperidal for now Elevated LFTs: likely related to above -Monitor LFTs Schizophrenia -Stable without acute decompensation -continue risperidal 1 mg bid Levenox for DVT prophylaxis Full code regular diet Quality Stroke Does the patient have a stroke diagnosis?: No VTE Prior VTE?: No VTE Risk Level:: Medical - moderate - high VTE Device Contraindication: Treatment Not Indicated VTE Drug Contraindication: N/A - Med Ordered
--- NOTE | 2024-10-28 12:50 | MHC.CM.PN ---
PT REPORTS HE LIVES WITH HIS PARENTS AND IS INDEPENDENT WITH CARE HE HAS NO DME AND NO SERVICE S HE AGED OUT OF HIS PCP AND IS SEEKING A NEW ONE, BROCHURE PROVIDED AND TASK SENT TO SEE IF AN APPT COULD BE MADE FOR HIM HE IS NOT INTERESTED IN COMPLETING A HCP DCP: HOME NO SERVICES VIA [facility]
--- NOTE | 2024-10-28 13:33 | PM.PNNEP ---
Subjective Subjective Date of Service: 10/28/24 Interval history: Comfortable, no new complaints, pain resolved. Renal function improving with IV fluids, however CPK remained stable. Physical Exam Vital Signs: Vital Signs: Last Vital Signs Temp 98.0 F 10/28/24 07:47 Pulse 73 10/28/24 07:47 Resp 16 10/28/24 07:47 BP 133/65 10/28/24 07:47 Pulse Ox 95 10/28/24 07:47 O2 Del Method Room Air 10/28/24 07:47 BMI result Body Mass Index 37.3 General: Not in any acute distress, comfortable and pleasant Nutritional Appearance: well nourished and overweight Eyes: appearance normal, both eyes and all related structures; Alignment and Position: alignment normal and position normal Neck: No lymphadenopathy, no thyromegaly Resp: bilateral air entry equal, no added sounds present Cardio: Regular rate, regular rhythm; Heart sounds: S1 normal heart sound present and S2 normal heart sound present GI: soft, nontender, no guarding, no hepatosplenomegaly : bladder normal to inspection, bladder normal to palpation, no renal angle tenderness Skin: no rashes or lesions noted and elasticity normal Neuro: oriented to person, oriented to place, oriented to time and moves all extremities Objective Data Labs 10/27/24 10:59 10/28/24 06:03 Labs: Laboratory Results - last 24 hr 10/27/24 10/27/24 10/28/24 17:52 20:44 06:03 Hold Purple Top Sodium 136 140 Potassium 3.5 4.6 D Chloride 102 109 H Carbon Dioxide 26 26 Anion Gap 12 10 L BUN 20 H 18 H Creatinine 1.60 H 1.18 Estim Creat Clear Calc 83.3 113.0 Estimated GFR 53 > 60 Random Glucose 104 107 Calcium 8.9 D 9.3 Phosphorus 4.3 Total Bilirubin 1.3 H AST 268 H ALT 81 H Alkaline Phosphatase 61 Total Creatine Kinase 60226 H Total Protein 7.3 Albumin 4.2 Urine Color Yellow Urine Appearance Clear Urine pH 5.5 Ur Specific [place] 1.010 Urine Protein Negative Urine Glucose (UA) Negative Urine Ketones Negative Urine Blood Small (1+) H Urine Nitrite Negative Ur Leukocyte Esterase Negative Urine RBC 3-5 H Urine WBC 0-5 Ur Squamous Epith Cells 0-2 Other Crystals Present Urine Bacteria None Seen Hyaline Casts 0-2 Urine Osmolality 232 L Ur Random Sodium < 20.0 Urine Opiates Screen Not Detected Ur Buprenorphine Scrn Not Detected Ur Oxycodone Screen Not Detected Urine Methadone Screen Not Detected Urine Fentanyl Screen Not Detected Ur Barbiturates Screen Not Detected Ur Phencyclidine Scrn Not Detected Ur Amphetamines Screen Not Detected U Benzodiazepines Scrn Not Detected Urine Cocaine Screen Not Detected U Marijuana (THC) Screen POSITIVE H 10/28/24 06:07 Hold Purple Top SEE NOTE Sodium Potassium Chloride Carbon Dioxide Anion Gap BUN Creatinine Estim Creat Clear Calc Estimated GFR Random Glucose Calcium Phosphorus Total Bilirubin AST ALT Alkaline Phosphatase Total Creatine Kinase Total Protein Albumin Urine Color Urine Appearance Urine pH Ur Specific [place] Urine Protein Urine Glucose (UA) Urine Ketones Urine Blood Urine Nitrite Ur Leukocyte Esterase Urine RBC Urine WBC Ur Squamous Epith Cells Other Crystals Urine Bacteria Hyaline Casts Urine Osmolality Ur Random Sodium Urine Opiates Screen Ur Buprenorphine Scrn Ur Oxycodone Screen Urine Methadone Screen Urine Fentanyl Screen Ur Barbiturates Screen Ur Phencyclidine Scrn Ur Amphetamines Screen U Benzodiazepines Scrn Urine Cocaine Screen U Marijuana (THC) Screen Procedures Date of Service Date of Service: 10/28/24 Assessment & Plan Assessment and plan (1) Schizophrenia: Status: Acute (2) KASSIE (acute kidney injury): Status: Acute (3) Rhabdomyolysis: Status: Acute Plan Acute kidney injury: improving with IVF creat down to 1.18. Secondary to rhabdomyolysis, CPK remains at 10k Rhabdomyolysis is precipitated by heat exhaustion in the setting of risperidone. UDS positive for marijuana some of the additives for marijuana to enhance potency can lead to rhabdo. Withhold risperidone until rhabdomyolysis clears, can restart upon discharge; advised patient to set up an appointment with pscyhiatry to change medication as this might be triggering rhabdo. Continue IV fluids at 200 cc/hour with target urine greater than 150 cc/hour can repeat CPK if stable or trending down can discharge with follow up in renal clinic next week with Aysha Maldonado NP no indication for renal replacement therapy at present. Closely monitor I's and O's, avoid nephrotoxic medications Time Spent With Patient Time: Total time managing care of this patient today ____ minutes. Progress Note: Quality Stroke Does the patient have a stroke diagnosis?: No
[2024-10-28 15:18] LABS: Anion Gap 12 (12-20); Blood Urea Nitrogen 18 mg/dL (9-16); Calcium 9.1 mg/dL (8.4-10.2); Carbon Dioxide 25 mmol/L (22-29); Chloride 107 mmol/L (96-108); Estimated Glomerular Filt Rate > 60; Glucose Random 86 mg/dL (60-115); Potassium 4.2 mmol/L (3.3-5.1); Sodium 140 mmol/L (135-145)
[2024-10-28 15:45] VITALS: BP 144/69; PULSE 78; RESP 16; TEMP 36.8; O2SAT 96
== END 2024-10-28 16:35 | disposition home or self-care (01) | DRG 815 ==
LOC: HO.ED 14:20 → HO.EDOVER 14:45 → HO.S3 16:00
PROVIDERS: Internal Medicine Critical Care Medicine; Admitting Provider Nurse Practitioner Family; Emergency Provider Emergency Medicine; Visit Provider Internal Medicine
DX: T67.5XXA Heat exhaustion, unspecified, initial encounter (principal); N17.9 Acute kidney failure, unspecified; M62.82 Rhabdomyolysis; E86.0 Dehydration; F20.9 Schizophrenia, unspecified; X30.XXXA Exposure to excessive natural heat, initial encounter; Y99.0 Civilian activity done for income or pay; Z79.899 Other long term (current) drug therapy
CPT/HCPCS: 36415; 80048; 80053; 80307; 81001; 82550; 83735; 83935; 84100; 84300; 85025; 99285; J7120

== ENCOUNTER → 2024-10-27 14:39 | Outpatient (BNV) | payer OTHER, SELFPAY | PROVIDERS: Admitting Provider Nurse Practitioner Family; Emergency Provider Emergency Medicine; Visit Provider Internal Medicine Critical Care Medicine | DX: N17.9 Acute kidney failure, unspecified (principal); M62.82 Rhabdomyolysis; F20.9 Schizophrenia, unspecified | CPT/HCPCS: 99223; 99232 ==

== ENCOUNTER → 2024-10-27 14:39 | Outpatient (BNV) | payer OTHER, SELFPAY | PROVIDERS: Admitting Provider Nurse Practitioner Family; Emergency Provider Emergency Medicine; Visit Provider Internal Medicine | DX: N17.9 Acute kidney failure, unspecified (principal); M62.82 Rhabdomyolysis | CPT/HCPCS: 99223; 99232 ==

== ENCOUNTER 2024-11-28 10:43 | Inpatient (IN) | payer OTHER, SELFPAY ==
[2024-11-28 10:54] VITALS: BP 136/79; BP 146/78; PULSE 88; PULSE 91; RESP 19; TEMP 37.1; O2SAT 98; BMI 36.5
--- NOTE | 2024-11-28 11:05 | ED.PSYCH ---
HPI - Psych General Chief Complaint: Extremity Injury, Lower Stated Complaint: LT knee pain, post fall, NO LOC or head strike Source: patient, family and EMS Mode of arrival: EMS History of Present Illness HPI Narrative: This is 24 years old the patient with a history of schizophrenia presented to emergency department with auditory hallucination he states that he is hearing voices, I spoke with the mother as well the mother states that he did an come back last night he stated at work all night MD complaint: hallucinations Onset (ago): day(s) (2) Duration: constant History of same: Yes Relieving factors: none Exacerbating factors: none Related Data Home Medications ?Medication ?Instructions ?Recorded ?Confirmed risperidone 1 mg tablet 1 mg PO BID 11/29/24 11/29/24 Allergies Allergy/AdvReac Type Severity Reaction Status Date / Time No Known Allergies Allergy Verified 11/28/24 10:59 Review of Systems Review of Systems: Yes all other systems are reviewed and are negative PMFSH Past Medical History Medical History (Updated 11/28/24 @ 16:36 by Cuate Ortiz MD) Schizophrenia Social History Social History Household Members: Family Household Members Other:: Dad Housing: House Do you presently have visiting nurse or other home services: No Alcohol intake: never Patient Tobacco Use Status: Never used Tobacco Smoked in Last 30 Days: No Use of substances other than those prescribed or required for medical reasons: No Substance Use Type: Marijuana Advance Directives: No Advance Directives Information Provided: Yes Do you have a plan to hurt others: No Plan service: No Sexual orientation: Straight/Heterosexual Physical Exam Vital Signs: Vital Signs: Last Vital Signs Temp 97.3 F 11/29/24 18:21 Pulse 66 11/29/24 18:49 Resp 16 11/29/24 22:00 BP 129/67 11/29/24 18:49 Pulse Ox 95 11/29/24 18:49 O2 Del Method Room Air 11/29/24 18:49 BMI result Body Mass Index 36.5 Const: General: cooperative Nutritional Appearance: well nourished Orientation/consciousness: patient oriented x3 HEENT: Head: Yes normal to inspection General nose exam: Normal external nose present Face and sinus: Yes normal facial exam Neck: Neck: Yes normal visual inspection Chest: Chest palpation & inspection: normal inspection of the chest Resp: Effort & Inspection: normal respiratory effort Auscultation: clear to auscultation bilaterally Cardio: Jugular venous distension: no JVD Rate: regular rate Rhythm: regular rhythm GI: Inspection: Yes normal to inspection Palpation (GI): Soft to palpation, not firm, nontender and no guarding Percussion: Yes normal to percussion Auscultation: normal bowel sounds Skin: General skin exam: no rashes or lesions noted, elasticity normal and turgor normal Lesions: no lesions Rashes: no rashes Wounds: no wounds Neuro: General: patient oriented x3 Cranial nerves: Yes CN's II-XII intact bilaterally Motor exam (neuro): 5/5 motor strength present throughout Course Reevaluation(s) Reevaluation #1: Patient remained stable he was seen by crisis team patient will be psychiatric inpatient level of care Time: 16:36 Reevaluation #2: Time: 08:57 Date: 11/29/24 Provider: Cuate Ortiz MD Patient in physician observation for psychiatric evaluation.? No acute events reported overnight. No current complaints. VS stable.? Patient is in bed search status/pending CARE team evaluation. Will continue to monitor. Reevaluation #3: I, Dr. Alas have take over the care of this patient, I reviewed pertinent blood work and imaging, re-evaluated the patient when appropriate. Time: 08:14 Medications Administered Generic Name Dose Route Start Last Admin Trade Name Freq PRN Reason Stop Dose Admin Risperidone 1 mg 11/28/24 21:00 11/29/24 21:40 Risperidone 1 Mg Tablet PO Not Given BID SHALOM Discontinued Medications Generic Name Dose Route Start Last Admin Trade Name Freq PRN Reason Stop Dose Admin Haloperidol Lactate 5 mg 11/29/24 17:35 11/29/24 17:47 Haloperidol Lactate 5 Mg/Ml Vial IM 11/29/24 17:36 5 mg STAT STA Administration Midazolam HCl 2 mg 11/29/24 17:39 11/29/24 17:47 Midazolam Hcl 2 Mg/2 Ml Vial IM 11/29/24 17:40 2 mg ONCE ONE Administration Medical Decision Making Medical Decision Making [facility] Narrative: Basically the patient is here with complaint of auditory hallucination we will consult crisis [id number] patient is very agitated coming out of the room since he came to know that he will be admitted took her Risperdal earlier. Will give him IM Haldol and 2 mg of Versed physically restrained Differential Diagnosis Differential Diagnoses: The differential diagnosis associated with the presentation includes Anxiety/psychosis/exacerbation of the schizophrenia Admission/Observation Consideration of admission/observation: Escalation of care including admission/observation considered Lab Data [facility] Lab Attestation statement: I reviewed the patient's lab results. 11/28/24 15:32 11/28/24 15:32 Labs: Lab Results 11/28/24 11/28/24 Range/Units 13:16 15:32 WBC 8.3 (4.8-10.8) X10*3/uL RBC 4.57 L (4.60-5.80) X10*6/uL Hgb 13.5 L (14.0-18.0) g/dl Hct 38.3 L (42.0-52.0) % MCV 83.8 (80.0-98.0) fL MCH 29.5 (27.0-33.0) pg MCHC 35.2 (31.0-36.0) g/dl RDW 12.2 (11.0-16.0) % Plt Count 249 (160-400) X10*3/uL MPV 9.5 (9.4-12.4) fL Immature Gran % (Auto) 0.2 (0.0-0.4) % Neut % (Auto) 67.0 (45-73) % Lymph % (Auto) 23.4 (20-40) % [place] % (Auto) 8.4 (2-11) % Eos % (Auto) 0.4 (0-4) % Baso % (Auto) 0.6 (0-2) % Lymph # (Auto) 2.0 (1.2-4.9) X10*3/uL [place] # (Auto) 0.7 (0.1-1.2) X10*3/uL Eos # (Auto) 0.0 (0.0-0.4) X10*3/uL Baso # (Auto) 0.1 (0.0-0.2) X10*3/uL Abs Immat Gran (auto) 0.02 (0.00-0.03) X10*3/uL Absolute Neuts (auto) 5.6 (2.0-8.3) x10*3/uL Absolute Nucleated RBC 0.000 (0.0-0.012) X10*3/uL Nucleated RBC % (auto) 0.0 (0.0-0.2) /100WBC Sodium 142 (135-145) mmol/L Potassium 3.6 (3.3-5.1) mmol/L Chloride 107 (96-108) mmol/L Carbon Dioxide 25 (22-29) mmol/L Anion Gap 14 (12-20) BUN 9 (9-16) mg/dL Creatinine 1.07 (0.5-1.4) mg/dL Estim Creat Clear Calc 122.2 Estimated GFR > 60 Random Glucose 104 (60-115) mg/dL Calcium 9.5 (8.4-10.2) mg/dL Total Bilirubin 1.3 H (0.0-1.0) mg/dL AST 81 H (5-37) U/L ALT 67 H (0-40) U/L Alkaline Phosphatase 60 (39-117) U/L Total Protein 8.1 H (6.5-8.0) g/dL Albumin 4.9 (3.5-5.0) g/dL Urine Color Yellow Urine Appearance Turbid Urine pH 6.0 (5.0-9.0) Ur Specific [place] >= 1.030 H (1.005-1.025) Urine Protein 30 (1+) H (Neg-Trace) mg/dL Urine Glucose (UA) Negative (Negative) mg/dL Urine Ketones 15 (Negative) mg/dL Urine Blood Negative (Negative) Urine Nitrite Negative (Negative) Ur Leukocyte Esterase Negative (Negative) Urine RBC 0-2 (0-2) /HPF Urine WBC 0-5 (0-5) /HPF Ur Squamous Epith Cells 0-2 (0-2) /HPF Calcium Oxalate Crystal Present Urine Bacteria None Seen (None Seen) Hyaline Casts 3-5 (0-2) /LPF Granular Casts Present Urine Opiates Screen Not Detected (Not Detect) Ur Buprenorphine Scrn Not Detected (Not Detect) ng/mL Ur Oxycodone Screen Not Detected (Not Detect) ng/mL Urine Methadone Screen Not Detected (Not Detect) ng/mL Urine Fentanyl Screen Not Detected (Not Detect) Ur Barbiturates Screen Not Detected (Not Detect) Ur Phencyclidine Scrn Not Detected (Not Detect) Ur Amphetamines Screen Not Detected (Not Detect) U Benzodiazepines Scrn Not Detected (Not Detect) Urine Cocaine Screen Not Detected (Not Detect) U Marijuana (THC) Screen POSITIVE H (Not Detect) Independent Historian mother Discharge Plan Discharge Clinical Impression: Auditory hallucination Schizophrenia Qualifiers: Schizophrenia type: unspecified Qualified Code(s): F20.9 - Schizophrenia, unspecified Prescriptions: No Action risperidone 1 mg tablet 1 mg PO BID Print Language: Arabic
--- OUTSIDE RECORDS SUMMARY | 2024-11-28 12:23 | XMS_ITS | Clinical Summary ---
Author Organization [facility] Address [address] [place] [address] Phone Care Team Providers Care Telephone Technician Name Role Phone Cindy Jones MD Primary Care Prov ider Allergies No known active allergies Medications cyclobenzaprine (FLEXERIL) 10 mg tablet Take 1 tablet (10 mg total) by mouth 2 (two) times a day if needed for muscle spasms for up to 5 days. 10 tablet 09/03/2024 Active Encounters Date Type Department Care Team Description 09/03/2024 12:07 AM EDT - 09/03/2024 12:[address] [facility] Emergency [address] [place] [address] Cervical strain, acute, initial encounter (Primary Dx); Strain of lumbar region, initial encounter Discharge Disposition: Home or Self Care from Last 3 Months Social History Tobacco Use Types Packs/Day Years Used Date Smoking Tobacco: Never Assessed Sex and Gender Information Value Date Recorded Sex Assigned at Not on file Legal Sex Male 9:12 PM EST Gender Identity Not on file Sexual Orientation Not on file Last Filed Vital Signs Vital Sign Reading Time Taken Comments Blood Pressure 124/79 09/03/2024 12:00 AM EDT Pulse 86 09/03/2024 12:00 AM EDT Temperature 36.7 C (98.1 F) 09/03/2024 12:00 AM EDT Respiratory Rate 16 09/03/2024 12:00 AM EDT Oxygen Saturation 98% 09/03/2024 12:09 AM EDT Inhaled Oxygen Concentration - - Weight 110 kg (242 lb) 09/02/2024 11:56 PM EDT Height 172.7 cm (5' 8 ) 09/02/2024 11:56 PM EDT Body Mass Index 36.8 09/02/2024 11:56 PM EDT Plan of Treatment Health Maintenance Due Date Last Done Comments HIV Screening 06/04/2023 Hepatitis C Screening 06/04/2023 Social Influencers of Health Screening 06/04/2023 HPV Vaccines (2 - Male 3-dose series) 08/17/2023 07/20/2023 COVID-19 Vaccine (1 - season) 2024 Depression Screening 05/10/2024 Influenza Vaccine (#1) 2025 DTaP,Tdap,and Td Vaccines (8 - Td or Tdap) 07/19/2033 07/20/2023, 01/21/2011, 11/27/2004, Additional history exists HIB Vaccines Completed 02/02/2001, 04/10, 03/02/2000, Additional history exists Hepatitis B Vaccines Completed 02/02/2001, 05/05/2000, 1999 Pneumococcal Vaccine: Pediatrics (0 to 5 Years) and At-Risk Patients (6 to 49 Years) Completed 02/02/2001, 05/05/2000, 03/02/2000, Additional history exists IPV Vaccines Completed 11/27/2004, 04/10, 03/02/2000, Additional history exists MMR Vaccines Completed 11/27/2004, 11/24/2000 Varicella Vaccines Completed 01/21/2011, 11/24/2000 Meningococcal ACWY Vaccine Aged Out 12/10/2018, No longer eligible based on patient's age to complete this topic Hepatitis A Vaccines Aged Out No long er eligible based on patient's age to complete this topic Meningococcal B Vaccine Aged Out No l onger eligible based on patient's age to complete this topic RSV Immunization Patients Under 20 months Aged Out No longer eligible based on patient's age to complete this topic Insurance [id number] MEDICAID ADVANTAGE [employer] GENER[employer] Care Teams Telephone Technician Relationship Specialty Start Date End Date Cindy Jones MD [address] [place] [id number] PCP - General 08/03/23
--- OUTSIDE RECORDS SUMMARY | 2024-11-28 12:23 | XMS_ITS | Encounter Summary ---
Author Organization [facility] Address [address] [place] [id number] Phone Care Team Providers Care Appeals Specialist Name Role Phone Jimmy Vaughn MD Primary Care Provider [phone] Encounter Details Date Type Department Care Team (Late st Contact Info) Description 12/21/2010 Conversion Encounter [facility] [address] [place] [address] [place] [address] Social History Tobacco Use Types Packs/Day Years [...] on filedocumented in this encounter Care Teams Appeals Specialist Relationship Specialty Start Date End Date Jimmy Vaughn MD [address] [place] [address] PCP - General 09/15/17 documented as of this encounter
[2024-11-28 12:53] VITALS: BP 153/77; PULSE 84; RESP 18; O2SAT 98
[2024-11-28 13:50] LABS: Cannabinoid Screen Urine POSITIVE (Not Detect)
--- NOTE | 2024-11-28 13:52 | PC.NURSE ---
Care Team meets with Pt at bedside. Per Mia in Care Team, Pt should be placed in BH pod. Mia aware Pt had urine drug screen for labs and does not request any additional lab work at this time. Security called for walk over and Pt cell phone collected by Security. Bag of belongings given to security. RN report on Pt called over to PATRIZIA Medrano earlier, however this RN gave in person report to PATRIZIA Bowden.
--- NOTE | 2024-11-28 14:24 | PC.NURSE ---
verbal order from Dr. Ortiz - only labs requested are CBC, CMP, SHEPPARD
--- NOTE | 2024-11-28 14:24 | PC.NURSE ---
pt comes over to [facility] with tank top and socks on under his gown.
[2024-11-28 15:36] LABS: MANUAL DIFF FLAG NO
[2024-11-28 15:38] LABS: Hematocrit 38.3 % (42.0-52.0); Hemoglobin 13.5 g/dl (14.0-18.0); Imm Gran Abs Auto 0.02 X10*3/uL (0.00-0.03); Imm Gran Pct Auto 0.2 % (0.0-0.4); Lymphocytes Absolute Auto 2.0 X10*3/uL (1.2-4.9); Mean Corpuscular HGB Conc 35.2 g/dl (31.0-36.0); Mean Corpuscular Hemoglobin 29.5 pg (27.0-33.0); Mean Corpuscular Volume 83.8 fL (80.0-98.0); NRBC Abs Auto 0.000 X10*3/uL (0.0-0.012); NRBC Pct Auto 0.0 /100WBC (0.0-0.2); Platelet Count 249 X10*3/uL (160-400); Red Blood Count 4.57 X10*6/uL (4.60-5.80); White Blood Count 8.3 X10*3/uL (4.8-10.8)
[2024-11-28 15:51] LABS: Alanine Aminotransferase 67 U/L (0-40); Albumin Level 4.9 g/dL (3.5-5.0); Alkaline Phosphatase 60 U/L (39-117); Anion Gap 14 (12-20); Aspartate Amino Transferase 81 U/L (5-37); Blood Urea Nitrogen 9 mg/dL (9-16); Calcium 9.5 mg/dL (8.4-10.2); Carbon Dioxide 25 mmol/L (22-29); Chloride 107 mmol/L (96-108); Creatinine Clr Calc Pharmacy 122.2; Estimated Glomerular Filt Rate > 60; Potassium 3.6 mmol/L (3.3-5.1); Sodium 142 mmol/L (135-145); Total Protein 8.1 g/dL (6.5-8.0)
--- NOTE | 2024-11-28 15:59 | PC.NURSE ---
med rec - pt states that the only medication he is taking currently is risperidone 1mg BID. He rachel taking any other medication. Risperidone was filled at pharmacy on 11/24. Med rec updated
[2024-11-28 20:23] VITALS: BP 156/81; PULSE 84; RESP 18; TEMP 37.1; O2SAT 99
[2024-11-29] VITALS (8 sets, daily range): BP systolic 119–164; BP diastolic 65–88; PULSE 65–101; RESP 15–18; TEMP 36.3–36.9; O2SAT 95–100
--- NOTE | 2024-11-29 07:31 | PC.NURSE ---
Assumed care of patient at 0645, patient appears to be in no apparent distress this am, pacing calmly, listening to music. Continue plan of care for IPLOC
[2024-11-29 07:59] LABS: Appearance Urine Turbid; Glucose Urine UA Negative (Negative); PH 6.0 (5.0-9.0); Specific Gravity - Urine >= 1.030 (1.005-1.025); UMIC TRIGGER UA YES
--- NOTE | 2024-11-29 15:01 | PC.NURSE ---
Report from Bronwyn. PATRIZIA. Patient ambulating around ED with steady gait. Calm and cooperative, sitter in place for safety
--- NOTE | 2024-11-29 15:25 | PC.NURSE ---
Patieint sitting in room crying, not responding to staff asking if he wants to medication, music, or other things. Sitter in place for safety, awaiting bed placement
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
--- NOTE | 2024-11-29 18:21 | PHA.MEDREC ---
Addendum entered by Lyndsey Coe [facility] 11/29/24 18:33: MED REC REVIEWED BY [facility] Original Note: Pharmacy Consult ? Medication Reconciliation Pharmacy has reviewed the medication reconciliation completed by nurse. Attempted to speak with pt but pt uncooperative and aggressive at this time. Spoke with pt pharmacy and they stated the pt just picked up Ripsiridone 1mg tabs 11/24 1 tablet at bedtime; looking in claims that matches but previous claims shows pt has been taking it 1 BID. Since we are unable to speak with pt at this time we will keep it BID since nursing confirmed BID with pt 11/28.
--- NOTE | 2024-11-29 19:06 | PC.NURSE ---
report taken form previous nurse. patient in 3 restraints, bilateral upper extremities and right lower extremity.
--- NOTE | 2024-11-29 23:34 | PC.NURSE ---
Assumed care of this Pt at 2315.
--- NOTE | 2024-11-30 | ECG_ITS ---
Test Reason : CP Blood Pressure : */* mmHG Vent. Rate : 66 BPM Atrial Rate : 66 BPM P-R Int : 136 ms QRS Dur : 86 ms QT Int : 386 ms P-R-T Axes : 22 20 10 degrees QTcB Int : 404 ms Normal sinus rhythm with sinus arrhythmia Normal ECG When compared with ECG of 27-Jun-2022 15:02, No significant change was found Referred By: Cuate Ortiz Electronically Signed By: Harsha Ross
[2024-11-30 08:36] VITALS: BP 154/86; PULSE 96; RESP 16; TEMP 36.9; O2SAT 99
--- NOTE | 2024-11-30 09:04 | MHC.EDTECH ---
Patient declined EKG at this time, would like to speak with the care team regarding discharge. RN aware
--- NOTE | 2024-11-30 09:16 | PC.NURSE ---
pt listening to head phones, asking for release papers , bed search explained, asked to talk with CARE team and pt spoke with CARE team briefly, pt calm and polite with slightly delayed responses. am med given as ordered
[2024-11-30 14:04] VITALS: BMI 35.7
[2024-11-30 14:08] VITALS: BP 134/70; PULSE 88; RESP 18; O2SAT 96
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
[2024-11-30 20:00] VITALS: BP 131/61; PULSE 88; RESP 16; TEMP 37.4; O2SAT 98
[2024-12-01 08:00] VITALS: BP 138/65; PULSE 90; RESP 18; TEMP 36.8; O2SAT 99
--- NOTE | 2024-12-01 09:49 | P.HPPS_ITS ---
HPI Date of Service: 12/01/24 Chief Complaint: psychosis Sources of Information: patient interviewed, chart reviewed and crisis/core team assessment reviewed HPI Subjective Notes: Dimas Warning, Conditional Voluntary and 3 Day Healthcare Proxy: No Guardianship: No Medical Problems Affecting Mental Status: No Narrative: Per care team: Patient is a 24 year old, Citizen Of [place] speaking, male wtith hx of schizophrenic who presented to the ED via ambulance reporting left leg injury and parent concerns behaviors that he is experiencing auditory hallucinations and not sleeping. Patient reported experiencing auditory hallucinations for 2 months and reported that today he was having a mental health thing. Patient reported that he got into an argument with his parents, and his father left. Collateral done at bedside with mom, per mom, patient has not slept in 2-3 days and hasn't been taking his medications. She reported patient is able to currently maintain a job, however within the past several days behaviors have significantly changed. She reported that patients moods have been up and down. Patient was seen on 11/30 at 15:00 and again on 12/01 10 30. C/C feel like I have a lot of negative thinking/thoughts but is probably not sure . When asked what actually the negative thoughts he was having, he states that I wanted kill myself. I wanted to harm myself . Reports that he has has been having negative thoughts for about a week. 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 Reported that he has been compliant with medication, and currently taking risperidone. He does not know what the dose. Reported that he has been taking medication since [id number] around that time. No other medication trials. He denies SI/SIB/HI/AVH at this current time during assessment. However reports that he has been hearing voices telling me do not do this or do not do that, or your an ashole . Denies command hallucination to tell him to do harm to himself or others. Denies suicidal thoughts history. Denies suicide attempt history. Denies family's mental health or substance use. Reported that he has not got admitted to anywhere else after he was here in 2022. Reports he has not seen his psychiatrist or therapist for for a whle but has active psychiatrist and therapist through [facility]. Denies having active PCP. He reports history of anxiety and ADHD. No other diagnosis Goal for this admission: To get it of the negative thoughts. He was falling asleep during psychiatric evaluation. Appears tired, and sleepy, but calm and cooperative. Flat affect, soft spoken. Do not make any delusional or paranoia statements. Past Psychiatric History: Inpt[place] hx of 1 [facility] [place] [facility] [place]. hx of 1 [facility] admission in March 2023. Has a therapist/ provider through [facility] Past med trials: none Suicide attempt: none From previous record: Per father no hx of aggression towards self or others prior to this admission. Medical Evaluation Reviewed: Yes [facility]LY [facility], [facility] Medical History Schizophrenia Narrative: Denies medical issues Narrative: Denies surgical history Family History: paternal uncle with schizophrenia. However he denies it on 11/30 any mental health illnesses or substance use runs his family Social History: Pt lives with father and his brother. He completed HS. He was working as a metal finishing Substance History: Patient denies substance use. Denies cigarette smoking. Denies alcohol use. Trauma History: None Diagnostics Vital Signs (24Hr): Vital Signs - 24 hr 11/30/24 14:08 11/30/24 20:00 Temperature 99.3 F Pulse Rate 88 88 Respiratory Rate 18 16 Blood Pressure 134/70 131/61 Pulse Oximetry 96 98 Oxygen Delivery Method Room Air Room Air BMI result Body Mass Index 35.7 Labs 11/28/24 15:32 11/28/24 15:32 Meds/Allergies Meds Home Medications ?Medication ?Instructions ?Recorded ?Confirmed ?Type risperidone 1 mg tablet 1 mg PO BID 11/29/24 5 History Allergies Allergies Allergy/AdvReac Type Severity Reaction Status Date / Time No Known Allergies Allergy Verified 11/28/24 10:59 Mental Status Exam Mental Status Exam Narrative: Appearance: casually groomed, fair hygiene, in NAD Behavior: cooperative Psychomotor: no agitation or retardation noted Speech: clear, delay delayed in response, soft tone, spontaneous TP: linear TC: no overt psychosis, however reports he hearing voices prior to coming to us Mood: Okay Affect: congruent SI: denies HI: denies VH/AH: reports hearing voices telling him do not do this/dad. you are an ass- hole Delusions:no overt paranoid delusions Insight/judgment: Impaired. Memory/cog: alert, oriented to place, month, year, situation. Assessment & Plan Assessment & Plan (1) Schizophrenia: Status: Acute Qualifiers: Schizophrenia type: unspecified Qualified Code(s): F20.9 - Schizophrenia, unspecified Code(s): F20.9 - Schizophrenia, unspecified Plan HPI: Patient is a 24 year old, Citizen Of [place] speaking, male wtith hx of schizophrenic who presented to the ED via ambulance reporting left leg injury and parent concerns behaviors that he is experiencing auditory hallucinations and not sleeping. Patient reported experiencing auditory hallucinations for 2 months and reported that today he was having a mental health thing. . Mom reports he has not taking medication. Mom reported patient is able to currently maintain a job, however within the past several days behaviors have significantly changed. She reported that patients moods have been up and down. Patient reports feel like I have a lot of negative thinking/thoughts but is probably not sure . When asked what actually the negative thoughts he was having, he states that I wanted kill myself. I wanted to harm myself . Reports that he has has been having negative thoughts for about a week. 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 Formulation/clinical reasoning: None medication compliant, mood is up and down, not sleeping experience hallucinations, have suicidal thoughts which interfere with his daily function, not able to perform work. Not engaged in outpatient psychiatric services. History of schizophrenic. He has very poor insight and judgment regarding the treatment and medications. Appears to be poor historian, he was restrain in the ED. given the above information, patient would benefit from [facility] admission for safety, mood stabilization, diagnostic clarification, medication review and implementation and access to therapeutic milieu. Hospital course: 11/30/24: CV 15 minute checks, 3 day notice- 12/05. No behavior issues. Continue to monitor for mental status changes, appear to be tired and sedated Continue with risperidone 1 mg b.i.d. for psychosis. Haldol 5 mg Q 4 hours p.r.n. for agitation Hydroxyzine 50 p.r.n for anxiety., trazodone 50 mg p.r.n. for insomnia. 12/01/24: Isolated, refused risperidone last night, saying that he has take take it daily in the morning only. He isolated himself in his room, napping, not able to wake him up for quick assessment. Appeared to be tired which could be from the IM received from the POD as restrained medication. No aggression behavior since admitted to the floor. Risperidone 2 mg daily for psychosis. We will continue titrate over the weekends if patient compliant with medication. Plan: CV 15 minute checks, 3 day notice- 12/05. Work with treatment team to do collateral and follow-up appointments for aftercare. EKG and other basic lab works included prolactin level, and UA as he has refused in the emergency room. Continue to titrate risperidone up to therapeutic dose. Patient educated on: diagnosis, medication risk/benefits and therapeutic strategies Informed Consent: further education needed Reason for continued inpatient stay Substantial Risk for: med/psych decompensation Statement Statement: I have reviewed the history and physical and performed a pertinent examination on my patient. No changes have occurred unless specified. If the History and Physical was not performed prior to admission, the Hospitalist's service will be consulted for completing the admission physical. Time Spent With Patient Time: Total time managing care of this patient today ____ minutes.
[2024-12-01 20:00] VITALS: BP 124/83; PULSE 92; RESP 16; TEMP 36.4; O2SAT 98
[2024-12-02 08:00] VITALS: BP 140/77; PULSE 75; RESP 16; TEMP 36.8; O2SAT 98
--- NOTE | 2024-12-02 18:03 | HO.PSYCHPN ---
Subjective Subjective Date of Service: 12/02/24 Reason For Visit: psychosis Subjective Notes: 3 Day Interim History: Active on unit. medication compliant. pt reports feeling good today; he reports not taking his prescribed medications while at home. 3 day up on 12/05/24; pt requesting to be discharged on Wednesday. Will review with treatment team. Continue current tx plan. Medication Compliance: Yes Side effects from medications: No Mental Status Exam Mental Status Exam Patient Appearance: Well Grooomed Patient Orientation: Person, Place, Time and Situation Level of Consciousness: Awake and Alert Patient Behavior: Appropriate and Guarded Mood Description: Calm Affect Description: Blunted Ability to Follow Directions: Good Speech Pattern: Clear Memory Description: Intact Hallucinations: None Delusions: Not Present Thought Process: Intact Thought Content: positive for Intact Diagnostics Vital Signs (24Hr): Vital Signs - 24 hr 12/01/24 20:00 12/02/24 08:00 Temperature 97.5 F 98.3 F Pulse Rate 92 75 Respiratory Rate 16 16 Blood Pressure 124/83 140/77 H Pulse Oximetry 98 98 Oxygen Delivery Method Room Air Room Air BMI result Body Mass Index 35.7 Labs 11/28/24 15:32 11/28/24 15:32 Medications Medications Current Medications Acetaminophen (Acetaminophen 325 Mg Tablet) 650 mg PO Q6H PRN PRN Reason: Headache/Pain, Scale 1-10 Al Hydroxide/Mg Hydroxide (Magnesium Hydrox/Alum Hydrox 30 Ml Oral.Susp) 30 ml PO Q6H PRN PRN Reason: Heartburn/Nausea Haloperidol (Haloperidol 5 Mg Tablet) 5 mg PO Q4H PRN PRN Reason: severe agitation/psychosis Hydroxyzine HCl (Hydroxyzine Hcl 50 Mg Tablet) 50 mg PO Q6H PRN PRN Reason: mild anxiety Magnesium Hydroxide (Milk Of Magnesia 30 Ml Oral.Susp) 30 ml PO DAILY PRN PRN Reason: Constipation Nicotine (Nicotine 21 Mg Patch.Td24) 21 mg TRANSDERMA DAILY PRN PRN Reason: nicotine craving Nicotine Polacrilex (Nicotine Polacrilex 2 Mg Gum) 2 mg BUCCAL Q2H PRN PRN Reason: Nicotine Cravings Risperidone (Risperidone 1 Mg Tablet) 1 mg PO BID SHALOM Last Admin: 12/02/24 08:32 Dose: 1 mg Trazodone HCl (Trazodone Hcl 50 Mg Tablet) 50 mg PO BEDTIME MRX1 PRN PRN Reason: Insomnia Allergies Allergies Allergy/AdvReac Type Severity Reaction Status Date / Time No Known Allergies Allergy Verified 11/28/24 10:59 Assessment & Plan Assessment & Plan (1) Schizophrenia: Qualifiers: Schizophrenia type: unspecified Qualified Code(s): F20.9 - Schizophrenia, unspecified Status: Acute Code(s): F20.9 - Schizophrenia, unspecified Plan HPI: Patient is a 24 year old, [place] speaking, male wtith hx of schizophrenic who presented to the ED via ambulance reporting left leg injury and parent concerns behaviors that he is experiencing auditory hallucinations and not sleeping. Patient reported experiencing auditory hallucinations for 2 months and reported that today he was having a mental health thing. . Mom reports he has not taking medication. Mom reported patient is able to currently maintain a job, however within the past several days behaviors have significantly changed. She reported that patients moods have been up and down. Patient reports feel like I have a lot of negative thinking/thoughts but is probably not sure . When asked what actually the negative thoughts he was having, he states that I wanted kill myself. I wanted to harm myself . Reports that he has has been having negative thoughts for about a week. 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 Formulation/clinical reasoning: None medication compliant, mood is up and down, not sleeping experience hallucinations, have suicidal thoughts which interfere with his daily function, not able to perform work. Not engaged in outpatient psychiatric services. History of schizophrenic. He has very poor insight and judgment regarding the treatment and medications. Appears to be poor historian, he was restrain in the ED. given the above information, patient would benefit from [facility] admission for safety, mood stabilization, diagnostic clarification, medication review and implementation and access to therapeutic milieu. Hospital course: 11/30/24: CV 15 minute checks, 3 day notice- 12/05. No behavior issues. Continue to monitor for mental status changes, appear to be tired and sedated Continue with risperidone 1 mg b.i.d. for psychosis. Haldol 5 mg Q 4 hours p.r.n. for agitation Hydroxyzine 50 p.r.n for anxiety., trazodone 50 mg p.r.n. for insomnia. 12/01/24: Isolated, refused risperidone last night, saying that he has take take it daily in the morning only. He isolated himself in his room, napping, not able to wake him up for quick assessment. Appeared to be tired which could be from the IM received from the POD as restrained medication. No aggression behavior since admitted to the floor. Risperidone 2 mg daily for psychosis. We will continue titrate over the weekends if patient compliant with medication. 12/02: Active on unit. medication compliant. pt reports feeling good today; he reports not taking his prescribed medications while at home. 3 day up on 12/05/24; pt requesting to be discharged on Wednesday. Will review with treatment team. Continue current tx plan. Plan: CV 15 minute checks, 3 day notice- 12/05. Work with treatment team to do collateral and follow-up appointments for aftercare. EKG and other basic lab works included prolactin level, and UA as he has refused in the emergency room. Continue to titrate risperidone up to therapeutic dose. Patient educated on: diagnosis and medication risk/benefits Reason for continued inpatient stay Substantial Risk for: med/psych decompensation Time Spent With Patient Time: Total time managing care of this patient today _20___ minutes.
[2024-12-02 20:00] VITALS: BP 148/87; PULSE 95; RESP 16; TEMP 36.9; O2SAT 96
[2024-12-02] MEDS: Milk of Magnesia 30 ML ORAL.SUSP PO (20:11)
[2024-12-03 08:35] VITALS: BP 130/75; PULSE 80; RESP 20; TEMP 36.6; O2SAT 98
--- NOTE | 2024-12-03 18:47 | HO.PSYCHPN ---
Subjective Subjective Date of Service: 12/03/24 Reason For Visit: psychosis Subjective Notes: 3 Day Interim History: Active on unit. social with peers. pt continues to report feeling good today; pt is requesting to be discharged tomorrow rather than when his 3 day is up on 12/05/24. He reports feeling better since restarting Risperidal; denies SI/HI/VH/AH. Pt reports he plans on following up with his outpatient providers and being medication compliant. Medication Compliance: Yes Side effects from medications: No Attending Groups: Yes Mental Status Exam Mental Status Exam Narrative: Pt is alert and oriented; behavior is cooperative and calm; dressed in casual attire; mood is described as good ; eye contact appropriate; Speech is normal rate, volume and not pressured; thought process is organized; Thought content is on discharge; denies SI/HI/VH/AH. Diagnostics Vital Signs (24Hr): Vital Signs - 24 hr 12/02/24 20:00 12/03/24 08:35 Temperature 98.4 F 97.8 F Pulse Rate 95 80 Respiratory Rate 16 20 Blood Pressure 148/87 H 130/75 Pulse Oximetry 96 98 Oxygen Delivery Method Room Air Room Air BMI result Body Mass Index 35.7 Labs 11/28/24 15:32 11/28/24 15:32 Medications Medications Current Medications Acetaminophen (Acetaminophen 325 Mg Tablet) 650 mg PO Q6H PRN PRN Reason: Headache/Pain, Scale 1-10 Al Hydroxide/Mg Hydroxide (Magnesium Hydrox/Alum Hydrox 30 Ml Oral.Susp) 30 ml PO Q6H PRN PRN Reason: Heartburn/Nausea Haloperidol (Haloperidol 5 Mg Tablet) 5 mg PO Q4H PRN PRN Reason: severe agitation/psychosis Hydroxyzine HCl (Hydroxyzine Hcl 50 Mg Tablet) 50 mg PO Q6H PRN PRN Reason: mild anxiety Magnesium Hydroxide (Milk Of Magnesia 30 Ml Oral.Susp) 30 ml PO DAILY PRN PRN Reason: Constipation Last Admin: 12/02/24 20:11 Dose: 30 ml Nicotine (Nicotine 21 Mg Patch.Td24) 21 mg TRANSDERMA DAILY PRN PRN Reason: nicotine craving Nicotine Polacrilex (Nicotine Polacrilex 2 Mg Gum) 2 mg BUCCAL Q2H PRN PRN Reason: Nicotine Cravings Risperidone (Risperidone 1 Mg Tablet) 1 mg PO BID SHALOM Last Admin: 12/03/24 09:34 Dose: 1 mg Trazodone HCl (Trazodone Hcl 50 Mg Tablet) 50 mg PO BEDTIME MRX1 PRN PRN Reason: Insomnia Allergies Allergies Allergy/AdvReac Type Severity Reaction Status Date / Time No Known Allergies Allergy Verified 11/28/24 10:59 Assessment & Plan Assessment & Plan (1) Schizophrenia: Qualifiers: Schizophrenia type: unspecified Qualified Code(s): F20.9 - Schizophrenia, unspecified Status: Acute Code(s): F20.9 - Schizophrenia, unspecified Plan Patient is a 24 year old, Khmer speaking, male wtith hx of schizophrenic who presented to the ED via ambulance reporting left leg injury and parent concerns behaviors that he is experiencing auditory hallucinations and not sleeping. Patient reported experiencing auditory hallucinations for 2 months and reported that today he was having a mental health thing. . Mom reports he has not taking medication. Mom reported patient is able to currently maintain a job, however within the past several days behaviors have significantly changed. She reported that patients moods have been up and down. Patient reports feel like I have a lot of negative thinking/thoughts but is probably not sure . When asked what actually the negative thoughts he was having, he states that I wanted kill myself. I wanted to harm myself . Reports that he has has been having negative thoughts for about a week. 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 Formulation/clinical reasoning: None medication compliant, mood is up and down, not sleeping experience hallucinations, have suicidal thoughts which interfere with his daily function, not able to perform work. Not engaged in outpatient psychiatric services. History of schizophrenic. He has very poor insight and judgment regarding the treatment and medications. Appears to be poor historian, he was restrain in the ED. given the above information, patient would benefit from [facility] admission for safety, mood stabilization, diagnostic clarification, medication review and implementation and access to therapeutic milieu. Plan: CV 15 minute checks, 3 day notice- 12/05. Work with treatment team to do collateral and follow-up appointments for aftercare. EKG and other basic lab works included prolactin level, and UA as he has refused in the emergency room. Continue to titrate risperidone up to therapeutic dose. Hospital course: 11/30/24: CV 15 minute checks, 3 day notice- 12/05. No behavior issues. Continue to monitor for mental status changes, appear to be tired and sedated Continue with risperidone 1 mg b.i.d. for psychosis. Haldol 5 mg Q 4 hours p.r.n. for agitation Hydroxyzine 50 p.r.n for anxiety., trazodone 50 mg p.r.n. for insomnia. 12/01/24: Isolated, refused risperidone last night, saying that he has take take it daily in the morning only. He isolated himself in his room, napping, not able to wake him up for quick assessment. Appeared to be tired which could be from the IM received from the POD as restrained medication. No aggression behavior since admitted to the floor. Risperidone 2 mg daily for psychosis. We will continue titrate over the weekends if patient compliant with medication. 12/02: Active on unit. medication compliant. pt reports feeling good today; he reports not taking his prescribed medications while at home. 3 day up on 12/05/24; pt requesting to be discharged on Wednesday. Will review with treatment team. Continue current tx plan. 12/03: Active on unit. social with peers. pt continues to report feeling good today; pt is requesting to be discharged tomorrow rather than when his 3 day is up on 12/05/24. He reports feeling better since restarting Risperidal; denies SI/HI/VH/AH. Pt reports he plans on following up with his outpatient providers and being medication compliant. Patient educated on: diagnosis and medication risk/benefits Reason for continued inpatient stay Substantial Risk for: stable for discharge Time Spent With Patient Time: Total time managing care of this patient today _20___ minutes.
[2024-12-03 20:00] VITALS: BP 145/82; PULSE 71; RESP 18; TEMP 36.7; O2SAT 98
[2024-12-04 07:57] VITALS: BP 138/86; PULSE 79; RESP 16; TEMP 36.2; O2SAT 100
--- NOTE | 2024-12-04 09:41 | P.DS_ITS ---
DS: Providers Provider Date of Service: 12/04/24 Date of admission: 11/30/24 11:47 Date of discharge: 12/04/24 Primary care physician: Unknown Physician Admitting clinician: Jessica Becker Attending physician on admission: Donnie Mendoza Attending physician on discharge: Donnie Mendoza Discharging clinician: Renee James DS: Diagnosis Discharge Diagnosis (1) Schizophrenia: Status: Acute DS: Medications Discharge Medications Home Medications: Previous Rx's ?Medication ?Instructions ?Recorded risperidone 1 mg tablet 1 mg PO BID 30 days #60 tabs 12/03/24 Mental Status Exam Mental Status Exam Narrative: Pt is alert and oriented; behavior is cooperative and calm; dressed in casual attire; mood is described as good ; eye contact appropriate; Speech is normal rate, volume and not pressured; thought process is organized; Thought content is on discharge; denies SI/HI/VH/AH. Data Data Completed and Pending Completed studies during hospitalization [Text1]: 11/28/24 11/28/24 13:16 15:32 WBC 8.3 RBC 4.57 L Hgb 13.5 L Hct 38.3 L MCV 83.8 MCH 29.5 MCHC 35.2 RDW 12.2 Plt Count 249 MPV 9.5 Immature Gran % (Auto) 0.2 Neut % (Auto) 67.0 Lymph % (Auto) 23.4 [place] % (Auto) 8.4 Eos % (Auto) 0.4 Baso % (Auto) 0.6 Lymph # (Auto) 2.0 [place]linger # (Auto) 0.7 Eos # (Auto) 0.0 Baso # (Auto) 0.1 Abs Immat Gran (auto) 0.02 Absolute Neuts (auto) 5.6 Absolute Nucleated RBC 0.000 Nucleated RBC % (auto) 0.0 Sodium 142 Potassium 3.6 Chloride 107 Carbon Dioxide 25 Anion Gap 14 BUN 9 Creatinine 1.07 Estim Creat Clear Calc 122.2 Estimated GFR > 60 Random Glucose 104 Calcium 9.5 Total Bilirubin 1.3 H AST 81 H ALT 67 H Alkaline Phosphatase 60 Total Protein 8.1 H Albumin 4.9 Urine Color Yellow Urine Appearance Turbid Urine pH 6.0 Ur Specific [place] >= 1.030 H Urine Protein 30 (1+) H Urine Glucose (UA) Negative Urine Ketones 15 Urine Blood Negative Urine Nitrite Negative Ur Leukocyte Esterase Negative Urine RBC 0-2 Urine WBC 0-5 Ur Squamous Epith Cells 0-2 Calcium Oxalate Crystal Present Urine Bacteria None Seen Hyaline Casts 3-5 Granular Casts Present Urine Opiates Screen Not Detected Ur Buprenorphine Scrn Not Detected Ur Oxycodone Screen Not Detected Urine Methadone Screen Not Detected Urine Fentanyl Screen Not Detected Ur Barbiturates Screen Not Detected Ur Phencyclidine Scrn Not Detected Ur Amphetamines Screen Not Detected U Benzodiazepines Scrn Not Detected Urine Cocaine Screen Not Detected U Marijuana (THC) Screen POSITIVE H DS: Summary Hospital Course Hospital Course: Per care team: Patient is a 24 year old, Libyan speaking, male wtith hx of schizophrenic who presented to the ED via ambulance reporting left leg injury and parent concerns behaviors that he is experiencing auditory hallucinations and not sleeping. Patient reported experiencing auditory hallucinations for 2 months and reported that today he was having a mental health thing. Patient reported that he got into an argument with his parents, and his father left. Collateral done at bedside with mom, per mom, patient has not slept in 2-3 days and hasn't been taking his medications. She reported patient is able to currently maintain a job, however within the past several days behaviors have significantly changed. She reported that patients moods have been up and down. Patient was seen on 11/30 at 15:00 and again on 12/01 10 30. C/C feel like I have a lot of negative thinking/thoughts but is probably not sure . When asked what actually the negative thoughts he was having, he states that I wanted kill myself. I wanted to harm myself . Reports that he has has been having negative thoughts for about a week. 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 Reported that he has been compliant with medication, and currently taking risperidone. He does not know what the dose. Reported that he has been taking medication since [id number] around that time. No other medication trials. He denies SI/SIB/HI/AVH at this current time during assessment. However reports that he has been hearing voices telling me do not do this or do not do that, or your an ashole . Denies command hallucination to tell him to do harm to himself or others. Denies suicidal thoughts history. Denies suicide attempt history. Denies family's mental health or substance use. Reported that he has not got admitted to anywhere else after he was here in 2022. Reports he has not seen his psychiatrist or therapist for for a whle but has active psychiatrist and therapist through [facility]. Denies having active PCP. He reports history of anxiety and ADHD. No other diagnosis Goal for this admission: To get it of the negative thoughts. He was falling asleep during psychiatric evaluation. Appears tired, and sleepy, but calm and cooperative. Flat affect, soft spoken. Do not make any delusional or paranoia statements. Patient is a 24 year old, Libyan speaking, male wtith hx of schizophrenic who presented to the ED via ambulance reporting left leg injury and parent concerns behaviors that he is experiencing auditory hallucinations and not sleeping. Patient reported experiencing auditory hallucinations for 2 months and reported that today he was having a mental health thing. . Mom reports he has not taking medication. Mom reported patient is able to currently maintain a job, however within the past several days behaviors have significantly changed. She reported that patients moods have been up and down. Patient reports feel like I have a lot of negative thinking/thoughts but is probably not sure . When asked what actually the negative thoughts he was having, he states that I wanted kill myself. I wanted to harm myself . Reports that he has has been having negative thoughts for about a week. 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 Formulation/clinical reasoning: None medication compliant, mood is up and down, not sleeping experience hallucinations, have suicidal thoughts which interfere with his daily function, not able to perform work. Not engaged in outpatient psychiatric services. History of schizophrenic. He has very poor insight and judgment regarding the treatment and medications. Appears to be poor historian, he was restrain in the ED. given the above information, patient would benefit from [facility] admission for safety, mood stabilization, diagnostic clarification, medication review and implementation and access to therapeutic milieu. Plan: CV 15 minute checks, 3 day notice- 12/05. Work with treatment team to do collateral and follow-up appointments for aftercare. EKG and other basic lab works included prolactin level, and UA as he has refused in the emergency room. Continue to titrate risperidone up to therapeutic dose. Hospital course: CV 15 minute checks, 3 day notice- 12/05. No behavior issues. Continue to monitor for mental status changes, appear to be tired and sedated Continue with risperidone 1 mg b.i.d. for psychosis. Haldol 5 mg Q 4 hours p.r.n. for agitation Hydroxyzine 50 p.r.n for anxiety., trazodone 50 mg p.r.n. for insomnia. Isolated, refused risperidone last night, saying that he has take take it daily in the morning only. He isolated himself in his room, napping, not able to wake him up for quick assessment. Appeared to be tired which could be from the IM received from the POD as restrained medication. No aggression behavior since admitted to the floor. Risperidone 2 mg daily for psychosis. We will continue titrate over the weekends if patient compliant with medication. Active on unit. medication compliant. pt reports feeling good today; he reports not taking his prescribed medications while at home. 3 day up on 12/05/24; pt requesting to be discharged on Wednesday. Will review with treatment team. Continue current tx plan. Active on unit. social with peers. pt continues to report feeling good today; pt is requesting to be discharged tomorrow rather than when his 3 day is up on 12/05/24. He reports feeling better since restarting Risperidal; denies SI/HI/VH/AH. Pt reports he plans on following up with his outpatient providers and being medication compliant. Status at Discharge Cognitive/behavioral status at discharge: Patient has insight and demonstrates good judgment in terms of wanting to pursue treatment. Patient has a safety plan that includes presenting to the closest ER or calling 911 if feeling unsafe. Functional status at discharge: independent ambulation Overall status at discharge: patient is back to baseline Time Spent with Patient Time attestation: Total time managing care of this patient today _20___ minutes. Time spent: Less than 30 minutes Discharge Plan Discharge Anticipated Discharge Date/Time: 12/04/24 09:30 Patient Disposition: Home, Self-Care Discharge Diagnosis: Schizophrenia Referrals: [facility] ([facility]) [Other] - 12/07/24 9:30 am Ritika Farmer (psychiatrist) [Other] - 12/19/24 5:30 pm Referral Note: In person appointment [facility] [Provider Group] - 1 Week Referral Note: 12-04-24 [facility] was added to patients chart. Please call [phone] to schedule a follow up appt within 7-10 days from discharge. No release or PCP on file. Discharge Medications: Continued risperidone 1 mg tablet 1 mg PO BID 30 Days Qty: 60 0RF Discharge Orders: Discharge Order (Routine); Ordered 12/04/24 Ordered By: Renee James Diet: Regular diet Activity on Discharge: As tolerated Stand Alone Forms: Patient Portal Discharge page, Community Support Print Language: Libyan Care Plan Goals: Maintain mood and safe behaviors Take medications as prescribed Practice coping skills Continue with outpatient providers and reach out to them as needed Health Concerns: Mood stability and behaviors Plan of Treatment: Follow up with your PCP, psychiatric provider and other outpatient providers regarding above concerns Take medications as prescribed Assessment: Patient has insight and demonstrates good judgment in terms of wanting to pursue treatment. Patient has a safety plan that includes presenting to the closest ER or calling 911 if feeling unsafe. Discharge Date/Time: 12/04/24 09:51
== END 2024-12-04 09:51 | disposition home or self-care (01) | DRG 750 ==
LOC: HO.ED 11-30 12:06 → HO.PADLT16 11-30 13:27
PROVIDERS: Admitting Provider Nurse Practitioner Psychiatric/Mental Health; Emergency Provider Emergency Medicine; Responsible Provider Registered Nurse; Visit Provider Psychiatry & Neurology Psychiatry
DX: F20.9 Schizophrenia, unspecified (principal); Z79.899 Other long term (current) drug therapy
CPT/HCPCS: 36415; 80053; 80307; 81001; 81003; 85025; 93005; 99285; J1630; J2250; S9485

== ENCOUNTER 2024-11-30 11:47 | Outpatient (BNV) | payer OTHER, SELFPAY | END 2024-11-30 12:11 | PROVIDERS: Admitting Provider Nurse Practitioner Psychiatric/Mental Health; Emergency Provider Emergency Medicine; Responsible Provider Registered Nurse; Visit Provider Internal Medicine Cardiovascular Disease | DX: R07.9 Chest pain, unspecified (principal) | CPT/HCPCS: 93010 ==

== ENCOUNTER → 2024-11-30 11:47 | Outpatient (BNV) | payer OTHER, SELFPAY | PROVIDERS: Admitting Provider Nurse Practitioner Psychiatric/Mental Health; Emergency Provider Emergency Medicine; Visit Provider Nurse Practitioner Psychiatric/Mental Health | DX: F20.9 Schizophrenia, unspecified (principal) | CPT/HCPCS: 99231 ==

== ENCOUNTER 2025-02-02 11:37 | Emergency (ER) | payer OTHER, SELFPAY ==
--- NOTE | 2025-02-02 11:56 | ED.GENADULT ---
HPI - General Adult General Stated complaint: med refill Time Seen by Provider: 02/02/25 11:56 Source: patient, RN notes reviewed and old records reviewed Mode of arrival: ambulatory Limitations: no limitations History of Present Illness ED Provider: Mary WHALEY narrative: 24-year-old male presents for evaluation of medication refill. He reports he takes risperidone 1 mg twice a day for anxiety. He reports that he ran out and does not have an appointment with a psychiatrist until February 15. He has no complaints or concerns at this time pain He is last dose was Wednesday, 4 days ago He is seeking a refill Related Data Previous Rx's ?Medication ?Instructions ?Recorded risperidone 1 mg tablet 1 mg PO BID 30 days #60 tabs 12/03/24 risperidone 1 mg tablet 1 mg PO BID #60 tabs 02/02/25 Allergies Allergy/AdvReac Type Severity Reaction Status Date / Time No Known Allergies Allergy Verified 02/02/25 12:12 Review of Systems Constitutional: Constitutional: Denies anorexia, Denies body ache(s), Denies chills and Denies fever(s) Eyes: Eyes: Denies blurry vision ENT: Denies vertigo Gastrointestinal: Gastrointestinal: Denies abdominal pain Neurologic: Denies vertigo Psychiatric: Psychiatric: Reports anxiety PMFSH Past Medical History Medical History Schizophrenia Social History Social History Household Members: Family Household Members Other:: Dad Housing: House Do you presently have visiting nurse or other home services: No Alcohol intake: never Patient Tobacco Use Status: Never used Tobacco Substance Use Type: Marijuana Advance Directives: No Advance Directives Information Provided: No service: No Sexual orientation: Straight/Heterosexual Physical Exam ED Const General: healthy appearing, comfortable, no acute distress, alert and awake Nutritional Appearance: well nourished Orientation/consciousness: patient oriented x3 HENMT Head: Yes normocephalic and Yes atraumatic Eyes Eyelids: Yes eyelids normal Conjunctivae: conjunctivae normal Sclerae: sclerae normal Corneas: corneas normal Pupils: Equal, round and reactive pupils present EOM: EOMs intact bilaterally Neck Neck: Yes full ROM Resp Effort & Inspection: normal respiratory effort, able to speak in complete sentences and not labored Skin General skin exam: elasticity normal Neuro General: patient oriented x3 Cranial nerves: Yes Equal, round and reactive pupils present and Yes Bilaterally intact EOM present Cognition (Neuro): normal cognition Extrem Other: Moving all extremities well without any obvious deformities Medical Decision Making Medical Decision Making MDM Narrative: 24-year-old male presents for evaluation of medication refill. His vital signs are stable, he is well-appearing, he has no somatic complaints. I sent a prescription for risperidone 1 mg twice daily for a 30 day supply. He should have more than enough time to follow up with psychiatrist for additional refills. Differential Diagnosis Differential Diagnoses: The differential diagnosis associated with the presentation includes Anxiety Medication refill Schizophrenia Medication noncompliance Discharge Plan Discharge Clinical Impression: Anxiety, Medication refill Patient Disposition: Home, Self-Care Instructions: Anxiety (ED) Prescriptions: New risperidone 1 mg tablet 1 mg PO BID Qty: 60 0RF No Action risperidone 1 mg tablet 1 mg PO BID 30 Days Qty: 60 0RF Print Language: Greek
[2025-02-02 12:10] VITALS: BP 118/56; PULSE 78; RESP 16; TEMP 36.8; O2SAT 100; BMI 35.4
--- NOTE | 2025-02-02 12:13 | PC.NURSE ---
Pt presents to triage with father. States he has run out of risperidone and needs a refill. Ran out 4 days ago. Pt denies SI/HI/AVH. Calm and cooperative. Has appt with established psychiatrist on 02/15. Pt states he only needs a refill to get him to the appt.
[2025-02-02 12:15] VITALS: BP 118/56; PULSE 78; RESP 16; TEMP 36.8; O2SAT 100
--- OUTSIDE RECORDS SUMMARY | 2025-02-02 13:53 | XMS_ITS | Encounter Summary ---
Author Organization [facility] Address [address] [place] [phone] Phone Care Team Providers Care Liability Claims Manager Name Role Phone Jimmy Vaughn MD Primary Care Provider [phone] Encounter Details Date Type Department Care Team (Late st Contact Info) Description 12/21/2010 Conversion Encounter [facility] [address] [place] [address] [place] [address] Social History Tobacco Use Types Packs/Day Years [...] on filedocumented in this encounter Care Teams Liability Claims Manager Relationship Specialty Start Date End Date Jimmy Vaughn MD [address] [address] PCP - General 09/15/17 documented as of this encounter
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
--- OUTSIDE RECORDS SUMMARY | 2025-02-02 13:53 | XMS_ITS | Clinical Summary ---
Author Organization [facility] Address [address] [place] [address] Phone Care Team Providers Care General Farmworker Name Role Phone Cindy Jones MD Primary Care Prov ider Allergies No known active allergies Medications cyclobenzaprine (FLEXERIL) 10 mg tablet Take 1 tablet (10 mg total) by mouth 2 (two) times a day if needed for muscle spasms for up to 5 days. 10 tablet 09/03/2024 Active Social History Tobacco Use Types Packs/Day Years [...] (2 - Male 3-dose series) 08/17/2023 07/20/2023 Depression Screening 05/10/2024 COVID-19 Vaccine (1 - season) 2025 Influenza Vaccine (#1) 2025 DTaP,Tdap,and Td Vaccines [...] patient's age to complete this topic Insurance [facility] MEDICAID ADVANTAGE [employer] Care Teams General Farmworker Relationship Specialty Start Date End Date Cindy Jones MD [address] [place] [id number] PCP - General 08/03/23
== END 2025-02-02 12:16 | disposition home or self-care (01) ==
PROVIDERS: Emergency Provider Emergency Medicine Emergency Medical Services
DX: F41.9 Anxiety disorder, unspecified (principal); F20.9 Schizophrenia, unspecified; Z76.0 Encounter for issue of repeat prescription
CPT/HCPCS: 99282

== ENCOUNTER 2025-03-08 08:25 | Emergency (ER) | payer OTHER, SELFPAY ==
[2025-03-08 08:30] VITALS: BP 141/92; PULSE 96; RESP 16; TEMP 36.6; O2SAT 97; BMI 37.6
--- NOTE | 2025-03-08 08:49 | ED_ITS ---
HPI - General Adult General Chief complaint: General Medical Stated complaint: medication Time Seen by Provider: 03/08/25 08:49 Source: patient Mode of arrival: ambulatory Limitations: no limitations History of Present Illness ED Provider: Janelle Choudhary PA-C HPI narrative: Patient is a 24 year old assigned male at with a history of schizophrenia on risperidone 1mg BID presenting to the emergency department today for a medication refill. Patient states that he had an appointment with a psychiatric provider on February 15 but he missed it and tried to get it rescheduled but when he showed up, they wouldn't see him. Patient states that he just needs a refill on his medication and he has no thoughts of hurting himself or anyone else. Patient denies any auditory of visual hallucinations at this time. Patient denies any other complaints at this time. Related Data Previous Rx's ?Medication ?Instructions ?Recorded risperidone 1 mg tablet 1 mg PO BID 30 days #60 tabs 12/03/24 risperidone 1 mg tablet 1 mg PO BID #60 tabs 5 risperidone 1 mg tablet 1 mg PO BID #60 tabs 5 Allergies Allergy/AdvReac Type Severity Reaction Status Date / Time No Known Allergies Allergy Verified 03/08/25 08:32 Review of Systems Constitutional: Constitutional: Reports as per HPI Eyes: Eyes: Reports as per HPI ENT: Reports as per HPI Cardiovascular: Cardiovascular: Reports as per HPI Respiratory: Respiratory: Reports as per HPI Gastrointestinal: Gastrointestinal: Reports as per HPI Genitourinary: Genitourinary: Reports as per HPI Musculoskeletal: Musculoskeletal: Reports as per HPI Integumentary/Breasts: Skin/Breast: Reports as per HPI Neurologic: Reports as per HPI Psychiatric: Psychiatric: Reports as per HPI Endocrine: Endocrine: Reports as per HPI Hematologic/Lymphatic: Hematologic/Lymphatic: Reports as per HPI Allergic/Immunologic: Allergic/Immunologic: Reports as per HPI PMF Past Medical History Attestation statement: The following information was validated with the patient. Source: old records reviewed and nursing notes reviewed Medical History Auditory hallucination Schizophrenia Social History Social History Household Members: Family Household Members Other:: Dad Housing: House Do you presently have visiting nurse or other home services: No Alcohol intake: never Patient Tobacco Use Status: Never used Tobacco Substance Use Type: Marijuana Advance Directives: No Advance Directives Information Provided: No service: No Sexual orientation: Straight/Heterosexual Physical Exam ED Vital Signs: Vital Signs - 24 hr 03/08/25 08:30 Temperature 98 F Pulse Rate 96 Respiratory Rate 16 Blood Pressure 141/92 H Pulse Oximetry 97 Oxygen Delivery Method Room Air BMI result Body Mass Index 37.6 Const General: cooperative, no acute distress, alert and awake Nutritional Appearance: well nourished Orientation/consciousness: patient oriented x3 HENMT Head: Yes normal to inspection and Yes atraumatic Ears: hearing grossly normal bilaterally and external ears normal General nose exam: Normal external nose present, no nasal discharge noted and no epistaxis Face and sinus: Yes normal facial exam, No abrasion and No laceration Mouth: Normal oral and palatal mucosa present, no drooling and no muffled voice Eyes General: appearance normal, both eyes and all related structures Periorbital: periorbital findings normal Eyelids: Yes eyelids normal Conjunctivae: conjunctivae normal Pupils: Equal, round and reactive pupils present EOM: EOMs intact bilaterally Neck Neck: Yes normal visual inspection and Yes full ROM Resp Effort & Inspection: normal respiratory effort and able to speak in complete sentences Neuro General: patient oriented x3, moves all extremities and CN's II-XI intact bilaterally Cranial nerves: Yes Equal, round and reactive pupils present Cognition (Neuro): normal cognition Extrem General: Yes normal to inspection, Yes full ROM and Yes capillary refill normal Psych Appearance: grossly normal Mental Status: mental status grossly normal Affect: normal affect Attitude: cooperative Thought process: Normal thought process present Thought content: Normal thought content present Insight: Good insight present (Psych) Medical Decision Making Medical Decision Making MDM Narrative: Patient is a 24 year old assigned male at with a history of schizophrenia on risperidone 1mg BID presenting to the emergency department today for a medication refill. Patient's physical exam was unremarkable. Patient well appearing. I explained my physical exam findings to the patient. I answered all questions asked by the patient. I explained to the patient that it is not appropriate for him to utilize the emergency department for medication refills. I explained that I appreciate he is trying to continue his care as best as he can by doing this but that it is cruci al he get established both with a primary care provider and an outpatient psychiatric team. The patient verbalized understanding of this and stated he would continue to work on it. I stressed the importance of the patient taking his medication as directed (either prescribed or as the over the counter packaging recommends). I stressed the importance of the patient establishing and following up with a primary care provider as well as a psychiatric team. I stressed the importance of the patient returning to the emergency department immediately if he were to develop any thoughts of hurting himself, thoughts of hurting others, auditory or visual hallucinations, dizziness, shortness of breath, difficulty breathing, chest pain, blurry vision, loss of vision, nausea, vomiting, abdominal pain, fever, chills, back pain, or any other complaints. Patient verbalized agreement and understanding with this treatment plan and discharge. Differential Diagnosis Differential Diagnoses: The differential diagnosis associated with the presentation includes Medication refill Schizophrenia Admission/Observation Consideration of admission/observation: Escalation of care including admission/observation considered Patient would have been admitted to the hospital had his clinical presentation warranted hospital admission. Prescription Management I considered prescription management with: Other (patient prescribed a refill of his risperidone) Discharge Plan Discharge Clinical Impression: Medication refill Schizophrenia Qualifiers: Schizophrenia type: unspecified Qualified Code(s): F20.9 - Schizophrenia, unspecified Patient Disposition: Home, Self-Care Instructions: Schizophrenia (ED), Medicine Refill (ED) Additional Instructions: It is important after this visit today that you follow up with either your mental / behavioral health or primary care provider within 7 days (from today).? Return for any symptoms or concerns such as thoughts of harming yourself or others. Please call 911 immediately if you feel your mental health is worsening.? National Suicide and Crisis Lifeline: Available 24 hours a day, 7 days a week, 365 days a year Dial 988 with any telephone to speak to someone immediately [facility] (Mental / Behavioral health therapist: [address] [place] [address] [facility] at [facility]: [address] [place] [address] Open from 10am - 12pm (walk ins welcome) [facility] Crisis Services: [address] [place] [address] Walk in hours from 10am - 12pm Behavioral health Network: [address] [place] [address] [address] [place] [address] Wednesday through Wednesday 8am - 8pm Wednesday and Wednesday 9am - 5pm You were provided with a medication refill today. It is crucial you follow up with a psychiatrist to ensure you continue getting this medication as prescribed. IF you are prescribed home medications and/or you are taking over the counter medications at home - it is very important you continue to do so as prescribed / directed unless told otherwise. Follow up with a primary care provider. Return to the emergency department immediately if your symptoms worsen or if you develop any numbness, tingling, dizziness, shortness of breath, difficulty breathing, chest pain, blurry vision, loss of vision, nausea, vomiting, abdominal pain, fever, chills, back pain, or any other complaints. If you do not have a primary care provider - call any of the below numbers to establish and follow up with a primary care provider. [facility] [place] Primary Care ([place]) [phone] [place] [address], [address] [facility] [place] Primary Care ([address] [place]) [phone] [place] [address], [address] [facility], [address] [facility] [place] Primary Care ([address] [place]) [phone] [place] [address], [address] [facility], [address] [facility] [place] Primary Care ([place]) [phone] [place] [address], [address] [facility], [address] [facility] [place] Family Medicine [phone] [address] [facility], [address] Please see the information below about our Patient Portal. If you are not yet enrolled in the [facility] Patient Portal, you will receive an enrollment email invitation following your visit to any [facility] setting. You may also self-enroll in the Patient Portal by visiting our website: [email or web address] The following information is required to access the Patient Portal: - Your [facility] [place] Medical Record Number - Your personal home email address (must match what is in your electronic medical record, Registration staff can assist with this) - Name - Date of Capabilities of the Patient Portal: - Message some providers - View upcoming appointments - Access your health summary, medical history, and visit history - View current conditions and allergies - View procedure and lab results - View your medications, including guidelines, side effects, and precautions - Complete pre-appointment questionnaires requested by your provider - Ready summary reports of your office visits and procedures To access the Patient Portal Mobile Carrie, follow these directions: - Search [email or web address] in the Carrie Store or VSoft Store - Download the Carrie - Search for [facility] - Enter your login/password Prescriptions: New risperidone 1 mg tablet 1 mg PO BID Qty: 60 0RF No Action risperidone 1 mg tablet 1 mg PO BID Qty: 60 0RF risperidone 1 mg tablet 1 mg PO BID 30 Days Qty: 60 0RF Print Language: Frisian
--- OUTSIDE RECORDS SUMMARY | 2025-03-08 09:25 | XMS_ITS | Clinical Summary ---
Author Organization [facility] Address [address] [place] [address] Phone Care Team Providers Care Paraeducator Name Role Phone Cindy Jones MD Primary [...] 08/17/2023 07/20/2023 Depression Screening 05/10/2024 COVID-19 Vaccine ( - season) 2025 Influenza Vaccine (#1) 2025 DTaP,Tdap,and Td Vaccines (8 - Td or Tdap) 07/19/2033 07/20/2023, 01/21/2011, 11/27/2004, Additional history exists RSV Immunization Adult Patients (1 - 1-dose 75+ series) 10/29/2074 HIB Vaccines Completed 02/02/2001, 04/10, 03/02/2000, Additional [...] patient's age to complete this topic Insurance [facility] MEDICAID ADVANTAGE AUTO GENERIC Care Teams Paraeducator Relationship Specialty Start Date End Date Cindy Jones MD [address] [place] [phone] PCP - General 08/03/23
--- OUTSIDE RECORDS SUMMARY | 2025-03-08 09:25 | XMS_ITS | Clinical Summary ---
Author Organization [facility] Address [address] [place] [address] Phone Care Team Providers Care Structural Steel Erection Supervisor Name Role Phone Jimmy Vaughn MD Primary Care Provider [phone] Allergies No known active allergies Medications albuterol [...] was diagnosed with paranoid schizophrenia in the [place] [facility] last year for hearing voices, depression [...] 07/20/2023 Influenza Vaccines (#1) 2024 COVID-19 Vaccine (1 - season) 2025 DTaP,Tdap,and Td Vaccines (8 [...] age to complete this topic Care Teams Structural Steel Erection Supervisor Relationship Specialty Start Date End Date Jimmy Vaughn MD [facility] [facility] [place] [address] [facility] - General 09/15/17
--- OUTSIDE RECORDS SUMMARY | 2025-03-08 09:25 | XMS_ITS | Encounter Summary ---
Author Organization [facility] Address [address] [place] [address] Phone Care Team Providers Care Document Restorer Name Role Phone Jimmy Vaughn MD Primary Care Provider [phone] Encounter Details Date Type Department Care Team (Late st Contact Info) Description 12/21/2010 Conversion Encounter [facility] [address] [place] [address] [place] [address] Social History Tobacco Use Types Packs/Day Years [...] on filedocumented in this encounter Care Teams Document Restorer Relationship Specialty Start Date End Date Jimmy Vaughn MD [address] [facility] [place] [address] PCP - General 09/15/17 documented as of this encounter
[2025-03-08 09:57] VITALS: BP 141/92; PULSE 96; RESP 16; TEMP 36.6; O2SAT 97
== END 2025-03-08 09:57 | disposition home or self-care (01) ==
PROVIDERS: Emergency Provider Emergency Medicine
DX: F20.9 Schizophrenia, unspecified (principal); Z79.899 Other long term (current) drug therapy; Z76.0 Encounter for issue of repeat prescription
CPT/HCPCS: 99282

== ENCOUNTER 2025-05-05 11:48 | Emergency (ER) | payer OTHER, SELFPAY ==
--- NOTE | ~2025-05-05 | XR_ITS ---
CLINICAL HISTORY: shortness of breath Chest Radiographs, 2 views Comparison: None available Findings: No cardiomegaly. Normal mediastinal contours. No pneumothorax. Opacity at the posterior costophrenic angle seen on the lateral view. No acute findings in the upper abdomen. No acute fracture. Impression: Opacity at the posterior costophrenic angle could be secondary to trace pleural effusions, atelectasis and/or pneumonia. This document has been electronically signed by: Ally Herndon MD on 05/05/2025 15:33:53
--- NOTE | 2025-05-05 11:51 | ED.GENADULT ---
HPI - General Adult General Chief complaint: Upper Respiratory Symptoms Stated complaint: Trouble Breathing Time Seen by Provider: 05/05/25 14:00 Source: patient, RN notes reviewed and old records reviewed Mode of arrival: ambulatory Limitations: no limitations History of Present Illness ED Provider: Mary WHALEY narrative: 24-year-old male presents for evaluation of shortness of breath. Patient reports waking up this morning with the symptoms pain Denies any fevers, chills, cough. He denies any history of asthma but reports improvement in his symptoms with his father's nebulizer no other complaints or concerns at this time pain No chest pain, denies any leg swelling pain Denies any recent travel Related Data Previous Rx's ?Medication ?Instructions ?Recorded risperidone 1 mg tablet 1 mg PO BID 30 days #60 tabs 12/03/24 risperidone 1 mg tablet 1 mg PO BID #60 tabs 02/02/25 risperidone 1 mg tablet 1 mg PO BID #60 tabs 03/08/25 albuterol sulfate 90 mcg/actuation 2 puff inhalation Q4-6H PRN 05/05/25 aerosol inhaler (Ventolin HFA) shortness of breath or wheezing #6.7 grams Allergies Allergy/AdvReac Type Severity Reaction Status Date / Time No Known Allergies Allergy Verified 05/05/25 11:53 Review of Systems Constitutional: Constitutional: Denies body ache(s), Denies chills, Denies fever(s) and Denies headache(s) Eyes: Eyes: Denies blurry vision ENT: Denies vertigo, Denies dizziness and Denies headache(s) Cardiovascular: Cardiovascular: Denies chest pain, Denies chest pain at rest, Reports dyspnea and Reports dyspnea on exertion Respiratory: Respiratory: Denies cough, Reports dyspnea, Reports dyspnea on exertion and Reports wheezing Musculoskeletal: Musculoskeletal: Denies back pain Integumentary/Breasts: Skin/Breast: Denies rash Neurologic: Denies vertigo, Denies dizziness and Denies headache(s) Allergic/Immunologic: Allergic/Immunologic: Reports wheezing PMF Past Medical History Medical History Auditory hallucination Schizophrenia Social History Social History Household Members: Family Household Members Other:: Dad Housing: House Do you presently have visiting nurse or other home services: No Alcohol intake: never Patient Tobacco Use Status: Never used Tobacco Substance Use Type: Marijuana Advance Directives: No Advance Directives Information Provided: Yes Do you have a plan to hurt others: No Plan service: No Sexual orientation: Straight/Heterosexual Physical Exam ED Vital Signs: Vital Signs - 24 hr 05/05/25 11:52 05/05/25 14:49 Temperature 97.0 F 97.0 F Pulse Rate 99 99 Respiratory Rate 18 18 Blood Pressure 178/77 H 178/77 H Pulse Oximetry 96 96 Oxygen Delivery Method Room Air Room Air BMI result Body Mass Index 39.9 Const General: healthy appearing, comfortable, no acute distress, alert and awake Nutritional Appearance: well nourished Orientation/consciousness: patient oriented x3 HENMT Head: Yes normocephalic and Yes atraumatic Eyes Eyelids: Yes eyelids normal Conjunctivae: conjunctivae normal Sclerae: sclerae normal Corneas: corneas normal Pupils: Equal, round and reactive pupils present EOM: EOMs intact bilaterally Neck Neck: Yes full ROM Resp Other: faint expiratory wheeze on exam Effort & Inspection: normal respiratory effort, able to speak in complete sentences and not labored Cardio Rate: regular rate Rhythm: regular rhythm GI Inspection: No distended Palpation (GI): Soft to palpation, not firm, nontender, no guarding and not rigid Skin General skin exam: elasticity normal Neuro General: patient oriented x3 Cranial nerves: Yes Equal, round and reactive pupils present and Yes Bilaterally intact EOM present Cognition (Neuro): normal cognition Extrem Other: Moving all extremities well without any obvious deformities Course Course Course Narrative: RME, this is a rapid medical exam performed by Ramón Hernandez please refer to primary provider for complete H&P- 24 year old male presents for evaluation of shortness of breath that started today. Plan for viral swabs. Lungs clear to auscultation on exam. Reevaluation(s) Reevaluation #1: the patient did have a subtle expiratory wheeze in the bilateral bases on re-examination. Plan for a chest x-ray. Time: 14:57 Medical Decision Making Medical Decision Making MDM Narrative: 24-year-old male with history of schizophrenia presents for evaluation of shortness of breath. He did have a subtle wheeze on re-examination, given that he has no history of asthma plan for a chest x-ray. Viral swabs negative Differential Diagnosis Differential Diagnoses: The differential diagnosis associated with the presentation includes influenza COVID-19 Upper respiratory infection Bronchitis Pneumonia Lab Data Labs: Lab Results 05/05/25 Range/Units 12:46 Influenza Type A (PCR) NEGATIVE (Negative) Influenza Type B (PCR) NEGATIVE (Negative) RSV RNA Qual (PCR) NEGATIVE (Negative) SARS-CoV-2 RNA (RT-PCR) NEGATIVE (Negative) Independent Interpretation I performed an independent interpretation of an: Plain X-Ray ( no infiltrates, pleural effusions or pneumothorax) Discharge Plan Discharge Clinical Impression: Acute dyspnea Patient Disposition: Home, Self-Care Instructions: Dyspnea (ED) Additional Instructions: you tested negative for influenza, COVID-19, RSV. Your chest x-ray does not show any pneumonia. You may use the albuterol inhaler as needed for shortness of breath and wheezing Prescriptions: New albuterol sulfate [Ventolin HFA] 90 mcg/actuation HFA aerosol inhaler 2 puff inhalation Q4-6H PRN (Reason: shortness of breath or wheezing) Qty: 6.7 0RF No Action risperidone 1 mg tablet 1 mg PO BID Qty: 60 0RF risperidone 1 mg tablet 1 mg PO BID 30 Days Qty: 60 0RF risperidone 1 mg tablet 1 mg PO BID Qty: 60 0RF Interventions: ED Discharge Assessment Last Done: 05/05/25 14:49 Discharge Date/Time: 05/05/25 14:51 Print Language: Barbadian
[2025-05-05 11:52] VITALS: BP 178/77; PULSE 99; RESP 18; TEMP 36.1; O2SAT 96; BMI 39.9
[2025-05-05 13:42] LABS: Resp Syncy Virus RNA Qual PCR NEGATIVE (Negative); SARS COV2 PCR INHOUSE NEGATIVE (Negative)
--- OUTSIDE RECORDS SUMMARY | 2025-05-05 14:10 | XMS_ITS | Encounter Summary ---
Author Organization [facility] Address [address] [place] [address] Phone Care Team Providers Care Supervisor Home Economics Name Role Phone Jimmy Vaughn MD Primary Care Provider [phone] Encounter Details Date Type Department Care Team (Late st Contact Info) Description 12/21/2010 Conversion Encounter [facility] [address] [place] [address] [place] [address] Social History Tobacco Use Types Packs/Day Years [...] on filedocumented in this encounter Care Teams Supervisor Home Economics Relationship Specialty Start Date End Date Jimmy Vaughn MD [address] [facility] [place] [address] PCP - General 09/15/17 documented as of this encounter
--- OUTSIDE RECORDS SUMMARY | 2025-05-05 14:11 | XMS_ITS | Clinical Summary ---
Author Organization [facility] Address [address] [place] [address] Phone Care Team Providers Care Medicaid Collection Specialist Name Role Phone Jimmy Vaughn MD Primary Care Provider [phone] Allergies No known active allergies Medications albuterol [...] was diagnosed with paranoid schizophrenia in the [place] [facility] last year for hearing voices, depression [...] need PT or orthopedics. Lymphadenitis, acute 11/19/2017 Encounters Date Type Department Care Team Description 05/01/2025 Refill [facility] [address] [place], [place] [address] Kellie Berger, ALVARO Wheezing from Last 3 Months Immunizations Immunization Administration Dates Next Due DTaP 5 11/27/2004, 1,05/05/2000, 000,1999 HPV Vaccine 9 Valent 07/20/2023 Hep B, ped/adol 02/02/2001,05/05/2000,1999 Hib (PRP-T) 02/02/2001, 0,03/02/2000, 000 IPV 11/27/2004, 1,03/02/2000, MMR 11/27/2004,11/24/2000 Meningococcal Conj (Menactra) MCV4P 12/10/2018,0 01/21/2011 Pneumococcal Conjugate 02/02/2001,1999,03/02/2000, 000 Tdap 07/20/2023,01/21/2011 Varicella 01/21/2011,11/24/2000 Family History Medical History Relation Name Comments No Known Problems Brother Bennie Asthma Father Jeffrey No Known Problems Mother Britt Relation Name Status Comments Brother Bennie Alive Father Jeffrey Alive Mother Britt Alive [...] Varicella Vaccines Completed 01/21/2011, 11/24/2000 Meningococcal Vaccine Completed 12/10/2018, 011 Hepatitis A Vaccines Aged Out No long er eligible based on patient's age to complete this topic Men B Vaccine Aged Out No longer elig ible based on patient's age to complete this topic Care Teams Medicaid Collection Specialist Relationship Specialty Start Date End Date Jimmy Vaughn MD [address] [place] [address] [place] [address] PCP - General 09/15/17
--- OUTSIDE RECORDS SUMMARY | 2025-05-05 14:11 | XMS_ITS | Clinical Summary ---
Author Organization [facility] Address [address] [place] [address] Phone Care Team Providers Care Form Grader Name Role Phone Cindy Jones MD Primary [...] patient's age to complete this topic Insurance [facility] MEDICAID ADVANTAGE AUTO GENERIC Care Teams Form Grader Relationship Specialty Start Date End Date Cindy Jones MD [address] [place] [phone] PCP - General 08/03/23
--- OUTSIDE RECORDS SUMMARY | 2025-05-05 14:11 | XMS_ITS | Encounter Summary ---
Author Organization [facility] Address [address] [place] [address] Phone Care Team Providers Care Microbiology Lab Assistant Name Role Phone Jimmy Vaughn MD Primary Care Provider [phone] Reason for Visit * Reason Comments Med Refill Encounter Details Date Type Department Care Team ([facility] st Contact Info) Description 05/01/2025 Refill [facility] [address] [place] [address] Kellie Berger, ALVARO [address] [facility] [place] [address] Wheezing Social History Tobacco Use Types Packs/Day Years [...] on file documented as of this encounter Miscellaneous Notes * Telephone Encounter - Mandy Conley MA - 05/01/2025 12:45 PM EST Please deny. Pt no longer our pt. documented in this encounter Plan of Treatment Not on file documented as of this encounter Visit Diagnoses Diagnosis Wheezing documented in this encounter Care Teams Microbiology Lab Assistant Relationship Specialty Start Date End Date Jimmy Vaughn MD [facility] [place] [address] PCP - General 09/15/17 documented as of this encounter
[2025-05-05 14:49] VITALS: BP 178/77; PULSE 99; RESP 18; TEMP 36.1; O2SAT 96
== END 2025-05-05 14:51 | disposition home or self-care (01) ==
PROVIDERS: Physician Assistant; Emergency Provider Emergency Medicine
DX: R06.00 Dyspnea, unspecified (principal); R06.02 Shortness of breath; R06.2 Wheezing; Z03.818 Encounter for observation for suspected exposure to other biological agents ruled out
CPT/HCPCS: 71046; 87637; 99282; 99283

== ENCOUNTER → 2025-05-05 14:05 | Outpatient (BNV) | payer OTHER, SELFPAY | PROVIDERS: Emergency Provider Emergency Medicine; Visit Provider Radiology Diagnostic Radiology | DX: R91.8 Other nonspecific abnormal finding of lung field (principal) | CPT/HCPCS: 71046 ==